=== PATIENT | female | born 1960 | race African-American/Black ===

== ENCOUNTER 2016-09-25 16:33 | Inpatient (IN) | payer OTHER ==
[2016-09-25 17:21] VITALS: BMI 32.3
--- NOTE | 2016-09-25 18:25 | HP ---
CIWA Score - CIWA Score Nausea/Vomitin Muscle Tremors: 3 Anxiety: 3 Agitation: 3 Paroxysmal Sweats: 2 Orientation: 0-Oriented Tacttile Disturbances: 2-Mild Itch/Numbness/Burn Auditory Disturbances: 2-Mild Harshness/Frighten Visual Disturbances: 2-Mild Sensitivity Headache: 2-Mild CIWA-Ar Total Score: 22 Admission ROS BHS - HPI Chief Complaint: i need help to stop drinking alcohol Allergies/Adverse Reactions: Allergies Allergy/AdvReac Type Severity Reaction Status Date / Time ibuprofen [From Motrin] Allergy Intermediate Swelling Verified 09/25/16 19:26 latex Allergy Intermediate Itching Verified 09/25/16 19:26 chlordiazepoxide HCl AdvReac Verified 09/25/16 19:26 [From Librium] History of Present Illness: this 55 years old female with alcohol dependence,seeking help for detox,last treatment rehab 10/03/15 to 10/30/15 in [facility], syncope alcohol related htn on medation seen in [facility] on 09/24/16 given librium,refer for detox no smoking longest period of sobriety 4 months - Ebola screening Have you traveled outside of the country in the last 21 days: No Have you had contact with anyone from an Ebola affected area: No Have you been sick,other than usual withdrawal symptoms: No Do you have a fever: No - Review of Systems Constitutional: Loss of Appetite, Malaise, Night Sweats, Changes in sleep, Weakness EENT: reports: Nose Congestion Respiratory: reports: Other (asthma bronchitis) Cardiac: reports: Palpitations GI: reports: Diarrhea, Nausea, Vomiting, Abdominal cramping : reports: No Symptoms Reported Musculoskeletal: reports: Back Pain, Muscle Pain Integumentary: reports: Dryness Endocrine: reports: No Symptoms Reported Hematology: reports: No Symptoms Reported Psychiatric: reports: No Sypmtoms Reported, Judgement Intact, Mood/Affect Appropiate Patient History - Patient Medical History Hx Anemia: No Hx Asthma: Yes (bronchitis) Hx Chronic Obstructive Pulmonary Disease (COPD): No Hx Cancer: No Hx Cardiac Disorders: No Hx Congestive Heart Failure: No Hx Hypertension: Yes (on medication) Hx Hypercholesterolemia: No Hx Pacemaker: No HX Cerebrovascular Accident: No Hx Seizures: No Hx Dementia: No Hx Diabetes: No Hx Gastrointestinal Disorders: Yes (gerd) Hx Liver Disease: No Hx Genitourinary Disorders: No Hx Sexually Transmitted Disorders: No Hx Renal Disease (ESRD): No Hx Thyroid Disease: No Hx Human Immunodeficiency Virus (HIV): No (hiv last 2015 ) Hx Hepatitis C: No Hx Depression: No Hx Suicide Attempt: No Hx Bipolar Disorder: No Hx Schizophrenia: No Other Medical History: no suicidal,no homicidal - Patient Surgical History Hx Section: Yes (06/2000) Hx Orthopedic Surgery: Yes (left ankle in 1999 [facility]) - PPD History Previous Implant?: Yes Documented Results: Negative w/o proof Implanted On Prior [facility] Admission?: No PPD to be Administered?: Yes - Reproductive History Patient is a Female of Child Bearing Age (11 -55 yrs old): No Patient : No - Smoking Cessation Smoking history: Never smoked - Substance & Tx. History Hx Alcohol Use: Yes Hx Substance Use: No Substance Use Type: Alcohol Hx Substance Use Treatment: Yes (rehab in [facility] 10.03.15 to 10.30.15) - Substances Abused Alcohol Route: Oral Frequency: Daily Amount used: 1pint of vodka Age of first use: 29 Date of Last Use: 09/23/16 Family Disease History - Family Disease History Family Disease History: CA: Mother ( leukemia), Other: Father (htn, ) Admission Physical Exam S - Vital Signs Vital Signs: Vital Signs - 24 hr 09/25/16 17:15 Temperature 98.1 F Pulse Rate 114 H Respiratory 20 Rate Blood Pressure 162/97 - Physical General Appearance: Yes: Moderate Distress, Tremorous, Irritable, Sweating, Anxious HEENTM: Yes: Normal ENT Inspection, YURIY, Pharynx Normal Respiratory: Yes: Lungs Clear, Normal Breath Sounds, No Respiratory Distress Neck: Yes: Within Normal Limits, Supple, Trachea in good position Breast: Yes: Breast Exam Deferred Cardiology: Yes: Tachycardia Abdominal: Yes: Within Normal Limits, Normal Bowel Sounds, Non Tender, Flat, Soft Genitourinary: Yes: Within Normal Limits Back: Yes: Muscle Spasm Musculoskeletal: Yes: Back pain, Muscle Pain Extremities: Yes: Tremors Neurological: Yes: copra processor II-XII NML intact, Fully Oriented, Alert, Motor Strength 5/5 Integumentary: Yes: Dry Lymphatic: Yes: Within Normal Limits - Diagnostic (1) Alcohol dependence with uncomplicated withdrawal Current Visit: Yes Status: Acute (2) Essential hypertension Current Visit: Yes Status: Acute (3) Syncope Current Visit: Yes Status: Acute (4) Bronchitis Current Visit: Yes Status: Acute (5) Obesity Current Visit: Yes Status: Acute Cleared for Admission S - Detox or Rehab [facility] Level of Care: Medically Managed Detox Regimen/Protocol: Valium BHS Breath Alcohol Content Breath Alcohol Content: 0 Urine Pregancy Test - Result Urine Test Results: Negative- NO Line Present Urine Drug Screen - Results Drug Screen Negative: No Urine Drug Screen Results: BZO-Benzodiazepines
[2016-09-25] MEDS ORDERED: diazePAM 5 MG TABLET PO PRN (18:44)
[2016-09-25] MEDS ORDERED: guaiFENesin/D-METHORPHAN HB 10 ML UNIT-DOSE CUPS PO PRN (18:44)
[2016-09-25] MEDS ORDERED: hydrOXYzine PAMOATE 50 MG CAPSULE (FP) PO PRN (18:44)
[2016-09-25] MEDS ORDERED: MAG HYDROX/AL HYDROX/SIMETH 30 ML UNIT-DOSE CUP PO PRN (18:44)
[2016-09-25] MEDS ORDERED: diazePAM 5 MG TABLET PO ONE (18:44)
[2016-09-25] MEDS ORDERED: P-EPHED 60MG/TRIPROLIDI 2.5MG TABLET PO PRN (18:44)
[2016-09-25] MEDS ORDERED: MAGNESIUM HYDROX 2400MG/30ML ORAL SUSPENSION 30 ML CUP PO PRN (18:44)
[2016-09-25] MEDS ORDERED: ACETAMINOPHEN 325 MG TABLET (FP) PO PRN (18:44)
[2016-09-25] MEDS ORDERED: diphenhydrAMINE HCL 50 MG CAPSULE PO PRN (18:44)
[2016-09-25] MEDS ORDERED: LOPERAMIDE HCL 2 MG CAPSULE PO PRN (18:44)
[2016-09-25] MEDS ORDERED: MENTHOL/PHENOL 1 EACH UD MM PRN (18:44)
[2016-09-25] MEDS ORDERED: MAGNESIUM CITRATE 300 ML BOTTLE PO PRN (18:44)
[2016-09-25] MEDS ORDERED: ALBUTEROL SO4 6.7 GM HFA INHALER IH PRN (18:50)
[2016-09-25] MEDS: diazePAM 5 MG TABLET PO SCH (22:47)
[2016-09-25] MEDS: THIAMINE HCL 100 MG TABLET (FP) PO SCH (22:48)
[2016-09-25 23:10] LABS: URINE APPEARANCE CLOUDY; URINE BILIRUBIN NEGATIVE (NEGATIVE); URINE BLOOD 1+ (NEGATIVE); URINE COLOR YELLOW; URINE GLUCOSE (UA) NEGATIVE (NEGATIVE); URINE KETONE 1+ (NEGATIVE); URINE NITRITE NEGATIVE (NEGATIVE); URINE UROBILINOGEN NEGATIVE mg/dL (0.2-1.0)
[2016-09-25 23:11] LABS: URINE LEUK ESTERASE 3+ (NEGATIVE); URINE PROTEIN 1+ (NEGATIVE)
[2016-09-25 23:22] LABS: URINE MUCUS RARE; URINE RBC 11 /hpf (0-3); URINE WBC 153 /hpf (3-5)
[2016-09-26] MEDS: diazePAM 5 MG TABLET PO SCH ×3 (05:50→22:55)
--- NOTE | 2016-09-26 10:05 | PN ---
S CIWA - CIWA Score Nausea/Vomitin Muscle Tremors: 3 Anxiety: 2 Agitation: 2 Paroxysmal Sweats: 1-Minimal Palms Moist Orientation: 0-Oriented Tacttile Disturbances: 1-Very Mild Itch/Numbness Auditory Disturbances: 1-Very Mild Visual Disturbances: 1-Very Mild Sensitivity Headache: 2-Mild CIWA-Ar Total Score: 16 S Progress Note (SOAP) Subjective: ALERT,IRRITABLE,ANXIOUS,INTERRUPTED SLEEP,TREMOR Objective: 09/26/16 10:01 Vital Signs Temperature 96.4 F L 09/26/16 09:23 Pulse Rate 111 H 09/26/16 09:23 Respiratory Rate 20 09/26/16 09:23 Blood Pressure 157/75 09/26/16 09:23 O2 Sat by Pulse Oximetry (%) EKG SINUS TACHYCARDIA 103/MIN NO CHEST PAIN,NO SOB,NO DIZZINESS Laboratory Last Values Urine Color Yellow 09/25/16 23:00 Urine Appearance Cloudy 09/25/16 23:00 Urine pH 6.0 (5.0-8.0) 09/25/16 23:00 Urine Protein 1+ (NEGATIVE) H 09/25/16 23:00 Urine Glucose (UA) Negative (NEGATIVE) 09/25/16 23:00 Urine Ketones 1+ (NEGATIVE) H 09/25/16 23:00 Urine Blood 1+ (NEGATIVE) H 09/25/16 23:00 Urine Nitrite Negative (NEGATIVE) 09/25/16 23:00 Urine Bilirubin Negative (NEGATIVE) 09/25/16 23:00 Urine Urobilinogen Negative mg/dL (0.2-1.0) 09/25/16 23:00 Ur Leukocyte Esterase 3+ (NEGATIVE) H 09/25/16 23:00 Urine RBC 11 /hpf (0-3) 09/25/16 23:00 Urine WBC 153 /hpf (3-5) 09/25/16 23:00 Ur Epithelial Cells Rare /hpf (FEW) 09/25/16 23:00 Urine Mucus Rare 09/25/16 23:00 URINE FOR C/S,UA Assessment: 09/26/16 10:04 WITHDRAWAL SYMPTOM Plan: CONTINUE DETOX,REPEAT UA,URINE FOR C/S R/O UTI
[2016-09-26 10:10] LABS: MCH 27.5 pg (25.7-33.7); MCHC 33.2 g/dl (32.0-36.0); MEAN CELL VOLUME 82.8 fl (80-96); MEAN PLT VOLUME 8.8 fl (7.5-11.1); PLATELET COUNT 148 K/MM3 (134-434); RDW 14.7 % (11.6-15.6); WHITE BLOOD COUNT 8.7 K/mm3 (4.0-10.0)
[2016-09-26 10:23] LABS: ALBUMIN 3.7 g/dl (3.4-5.0); ALK PHOS 112 U/L (45-117); ANION GAP 9 (8-16); CALCIUM 8.6 mg/dL (8.5-10.1); CO2 31 mmol/L (21-32); CREATININE 0.8 mg/dL (0.55-1.02); GLUCOSE,RANDOM 100 mg/dL (74-106); SGOT/AST 73 U/L (15-37); SGPT/ALT 63 U/L (12-78); TOT PROT 7.8 g/dl (6.4-8.2)
[2016-09-26] MEDS: PRENATAL VITAMINS W/ FOLIC ACID TABLET (FP) PO SCH (10:29)
[2016-09-26] MEDS: HYDROCHLOROTHIAZIDE 25 MG TABLET (FP) PO SCH (10:29)
[2016-09-26] MEDS: amLODIPine BESYLATE 10 MG TABLET (FP) PO SCH (10:29)
[2016-09-26] MEDS: SULFAMETHOXAZOLE/TRIMETHOPRIM 800MG/160MG D.S. TABLET PO SCH ×2 (11:11→22:24)
--- NOTE | 2016-09-26 11:27 | EKG ---
Test Reason : Blood Pressure : / mmHG Vent. Rate : 101 BPM Atrial Rate : 101 BPM P-R Int : 148 ms QRS Dur : 082 ms QT Int : 358 ms P-R-T Axes : 063 -32 061 degrees QTc Int : 464 ms SINUS TACHYCARDIA POSSIBLE LEFT ATRIAL ENLARGEMENT LEFT AXIS DEVIATION INFERIOR INFARCT , AGE UNDETERMINED ABNORMAL ECG NO PREVIOUS ECGS AVAILABLE Confirmed by TE SWANSON, JENNIFER ([id number]) on 09/26/2016 11:27:41 AM Referred By: Wang Rincon Confirmed By:JENNIFER TIWARI MD
[2016-09-26 15:32] LABS: URINE APPEARANCE SLCLOUDY; URINE BILIRUBIN NEGATIVE (NEGATIVE); URINE BLOOD NEGATIVE (NEGATIVE); URINE COLOR AMBER; URINE GLUCOSE (UA) NEGATIVE (NEGATIVE); URINE KETONE NEGATIVE (NEGATIVE); URINE NITRITE NEGATIVE (NEGATIVE)
[2016-09-26 15:37] LABS: URINE LEUK ESTERASE 3+ (NEGATIVE); URINE PROTEIN 1+ (NEGATIVE)
[2016-09-26 15:46] LABS: URINE HYALINE CAST 14 /lpf; URINE MUCUS FEW; URINE RBC 1 /hpf (0-3); URINE WBC 41 /hpf (3-5)
[2016-09-26] MEDS: THIAMINE HCL 100 MG TABLET (FP) PO SCH (22:24)
--- NOTE | 2016-09-27 10:16 | PN ---
S Progress Note (SOAP) Subjective: ALERT,IRRITABLE,ANXIOUS,INTERRUPTED SLEEP Objective: 09/27/16 10:15 Vital Signs Temperature 97.7 F 09/27/16 06:20 Pulse Rate 102 H 09/27/16 06:20 Respiratory Rate 18 09/27/16 06:20 Blood Pressure 147/90 09/27/16 06:20 O2 Sat by Pulse Oximetry (%) Assessment: 09/27/16 10:15 WITHDRAWAL SYMPTOM Plan: CONTINUE DETOX,DISCHARGE IN AM
[2016-09-27] MEDS: HYDROCHLOROTHIAZIDE 25 MG TABLET (FP) PO SCH (10:22)
[2016-09-27] MEDS: PRENATAL VITAMINS W/ FOLIC ACID TABLET (FP) PO SCH (10:22)
[2016-09-27] MEDS: diazePAM 5 MG TABLET PO SCH ×2 (10:22→22:55)
[2016-09-27] MEDS: amLODIPine BESYLATE 10 MG TABLET (FP) PO SCH (10:22)
[2016-09-27] MEDS: SULFAMETHOXAZOLE/TRIMETHOPRIM 800MG/160MG D.S. TABLET PO SCH ×2 (10:22→22:14)
--- NOTE | 2016-09-27 11:11 | PN ---
S CIWA - CIWA Score Nausea/Vomitin Muscle Tremors: 3 Anxiety: 2 Agitation: 2 Paroxysmal Sweats: No Perspiration Orientation: 0-Oriented Tacttile Disturbances: 1-Very Mild Itch/Numbness Auditory Disturbances: 1-Very Mild Visual Disturbances: 1-Very Mild Sensitivity Headache: 2-Mild CIWA-Ar Total Score: 15 S Progress Note (SOAP) Subjective: ALERT,IRRITABLE,ANXIOUS,INTERRUPTED SLEEP,TREMOR Objective: 09/27/16 11:09 Vital Signs Temperature 97.7 F 09/27/16 10:00 Pulse Rate 115 H 09/27/16 10:00 Respiratory Rate 20 09/27/16 10:00 Blood Pressure 144/76 09/27/16 10:00 O2 Sat by Pulse Oximetry (%) Laboratory Last Values WBC 8.7 K/mm3 (4.0-10.0) 09/26/16 07:30 RBC 4.69 M/mm3 (3.60-5.2) 09/26/16 07:30 Hgb 12.9 GM/dL (10.7-15.3) 09/26/16 07:30 Hct 38.8 % (32.4-45.2) 09/26/16 07:30 MCV 82.8 fl (80-96) 09/26/16 07:30 MCH 27.5 pg (25.7-33.7) 09/26/16 07:30 MCHC 33.2 g/dl (32.0-36.0) 09/26/16 07:30 RDW 14.7 % (11.6-15.6) 09/26/16 07:30 Plt Count 148 K/MM3 (134-434) 09/26/16 07:30 MPV 8.8 fl (7.5-11.1) 09/26/16 07:30 Sodium 136 mmol/L (136-145) 09/26/16 07:30 Potassium 3.3 mmol/L (3.5-5.1) L 09/26/16 07:30 Chloride 96 mmol/L (98-107) L 09/26/16 07:30 Carbon Dioxide 31 mmol/L (21-32) 09/26/16 07:30 Anion Gap 9 (8-16) 09/26/16 07:30 BUN 8 mg/dL (7-18) 09/26/16 07:30 Creatinine 0.8 mg/dL (0.55-1.02) 09/26/16 07:30 Creat Clearance w eGFR > 60 (>60) 09/26/16 07:30 Random Glucose 100 mg/dL (74-106) 09/26/16 07:30 Calcium 8.6 mg/dL (8.5-10.1) 09/26/16 07:30 Total Bilirubin 2.0 mg/dL (0.2-1.0) H 09/26/16 07:30 AST 73 U/L (15-37) H 09/26/16 07:30 ALT 63 U/L (12-78) 09/26/16 07:30 Alkaline Phosphatase 112 U/L (45-117) 09/26/16 07:30 Total Protein 7.8 g/dl (6.4-8.2) 09/26/16 07:30 Albumin 3.7 g/dl (3.4-5.0) 09/26/16 07:30 Urine Color Tamia 09/26/16 10:30 Urine Appearance Slcloudy 09/26/16 10:30 Urine pH 7.0 (5.0-8.0) 09/26/16 10:30 Ur Specific [place] 1.015 (1.005-1.025) 09/26/16 10:30 Urine Protein 1+ (NEGATIVE) H 09/26/16 10:30 Urine Glucose (UA) Negative (NEGATIVE) 09/26/16 10:30 Urine Ketones Negative (NEGATIVE) 09/26/16 10:30 Urine Blood Negative (NEGATIVE) 09/26/16 10:30 Urine Nitrite Negative (NEGATIVE) 09/26/16 10:30 Urine Bilirubin Negative (NEGATIVE) 09/26/16 10:30 Urine Urobilinogen 2.0 mg/dL (0.2-1.0) H 09/26/16 10:30 Ur Leukocyte Esterase 3+ (NEGATIVE) H 09/26/16 10:30 Urine RBC 1 /hpf (0-3) 09/26/16 10:30 Urine WBC 41 /hpf (3-5) 09/26/16 10:30 Ur Epithelial Cells Rare /hpf (FEW) 09/26/16 10:30 Hyaline Casts 14 /lpf 09/26/16 10:30 Urine Mucus Few 09/26/16 10:30 RPR Titer Nonreactive (NONREACTIVE) 09/26/16 07:30 Assessment: 09/27/16 11:10 WITHDRAWAL SYMPTOM Plan: CONTINUE DETOX,URINE FOR C/S PENDING,ENCOURAGE ORAL FLUID AND CONTINUE BACTRIM DS 1 TAB PO BID
[2016-09-27] MEDS: THIAMINE HCL 100 MG TABLET (FP) PO SCH (22:14)
--- NOTE | 2016-09-28 08:36 | PN ---
S Progress Note (SOAP) Subjective: ALERT,NO COMPLAINT Objective: 09/28/16 08:33 Vital Signs Temperature 97.7 F 09/28/16 06:07 Pulse Rate 90 09/28/16 06:07 Respiratory Rate 20 09/28/16 06:07 Blood Pressure 128/70 09/28/16 06:07 O2 Sat by Pulse Oximetry (%) 09/28/16 08:33 Assessment: 09/28/16 08:33 STABLE,NO WITHDRAWAL SYMPTOM Plan: DISCHARGE TODAY,FOLLOW UP WITH AFTER CARE PROGRAM ARRANGEMENT
--- NOTE | 2016-09-28 08:48 | DS ---
[facility] Detox Discharge Summary Admission Date: 09/25/16 Discharge Date: 09/28/16 - History Present History: Alcohol Dependence Additional Comments: FOLLOW UP WITH AFTER CARE PROGRAM ARRANGEMENT Pertinent Past History: ESSENTIAL HYPERTENSION SYNCOPE BRONHITIS OBESITY - Physical Exam Results Vital Signs: Vital Signs Temperature 97.7 F 09/28/16 06:07 Pulse Rate 90 09/28/16 06:07 Respiratory Rate 20 09/28/16 06:07 Blood Pressure 128/70 09/28/16 06:07 O2 Sat by Pulse Oximetry (%) Pertinent Admission Physical Exam Findings: WITHDRAWAL SYMPTOM - Treatment Hospital Course: Detox Protocol Followed, Detoxed Safely, Responded well, Discharged Condition Good Patient has Accepted a Rehab Referral to: DECLINED - Medication Discharge Medications: Ambulatory Orders Amlodipine Besylate [Norvasc -] 10 mg PO DAILY #30 tab 09/28/16 Hydrochlorothiazide 25 mg PO DAILY #30 tab 09/28/16 Sulfamethoxazole/Trimethoprim [Bactrim DS -] 1 each PO BID #14 tablet 09/28/16 - Diagnosis (1) Alcohol dependence with uncomplicated withdrawal Current Visit: Yes Status: Acute (2) Essential hypertension Current Visit: Yes Status: Acute (3) Syncope Current Visit: Yes Status: Acute (4) Bronchitis Current Visit: Yes Status: Acute (5) Obesity Current Visit: Yes Status: Acute (6) UTI (urinary tract infection) Current Visit: Yes Status: Acute - AMA Did Patient Leave Against Medical Advice: No
[2016-09-28 10:02] VITALS: BP 153/73; PULSE 97; TEMP 97.9
[2016-09-29] MEDS ORDERED: diazePAM 5 MG TABLET PO SCH (10:00)
== END 2016-09-28 09:14 | disposition home or self-care (01) | DRG 775 ==
LOC: EDSEX → YASAS 16:33 → Y6N 18:49
PROVIDERS: ADMIT Internal Medicine; ATTEND Internal Medicine
PROC: HZ2ZZZZ Detoxification Services for Substance Abuse Treatment (ICD-10-PCS; principal; 2016-09-25)
DX: F10.230 Alcohol dependence with withdrawal, uncomplicated (principal); I10 Essential (primary) hypertension; J40 Bronchitis, not specified as acute or chronic; E66.9 Obesity, unspecified; Z68.32 Body mass index [BMI] 32.0-32.9, adult; K21.9 Gastro-esophageal reflux disease without esophagitis; N39.0 Urinary tract infection, site not specified; R00.0 Tachycardia, unspecified; Z86.79 Personal history of other diseases of the circulatory system; Z88.6 Allergy status to analgesic agent; Z91.018 Allergy to other foods; Z88.8 Allergy status to other drugs, medicaments and biological substances
CPT/HCPCS: 36415; 80053; 81003; 81015; 85027; 86593; 87086; 93005; 93010

== ENCOUNTER 2017-01-13 18:17 | Inpatient (IN) | payer OTHER ==
[2017-01-13 18:38] VITALS: BMI 32.3
--- NOTE | 2017-01-13 21:20 | HP ---
CIWA Score - CIWA Score Nausea/Vomitin Muscle Tremors: 3 Anxiety: 3 Agitation: 3 Paroxysmal Sweats: 2 Orientation: 0-Oriented Tacttile Disturbances: 2-Mild Itch/Numbness/Burn Auditory Disturbances: 2-Mild Harshness/Frighten Visual Disturbances: 1-Very Mild Sensitivity Headache: 2-Mild CIWA-Ar Total Score: 21 Admission ROS BHS - HPI Chief Complaint: I AM HERE FOR DETOX FROM ALCOHOL Allergies/Adverse Reactions: Allergies Allergy/AdvReac Type Severity Reaction Status Date / Time ibuprofen [From Motrin] Allergy Intermediate Swelling Verified 01/13/17 19:46 latex Allergy Intermediate Itching Verified 01/13/17 19:46 chlordiazepoxide HCl AdvReac Verified 01/13/17 19:46 [From Librium] History of Present Illness: THIS 56 YEARS OLD FEMALE WITH ALCOHOL DEPENDENCE,SEEKING DETOX,LAST TREATMENT IN [facility] 12/10 BUT RELAPSE SYNCOPE HTN DEPRESSION LONGEST PERIOD OF SOBRIETY 6 MONTHS Exam Limitations: No Limitations - Ebola screening Have you traveled outside of the country in the last 21 days: No (N) Have you had contact with anyone from an Ebola affected area: No Have you been sick,other than usual withdrawal symptoms: No Do you have a fever: No - Review of Systems Constitutional: Loss of Appetite, Malaise, Night Sweats, Changes in sleep EENT: reports: Nose Congestion Respiratory: reports: No Symptoms reported Cardiac: reports: Palpitations GI: reports: Diarrhea, Nausea : reports: No Symptoms Reported Musculoskeletal: reports: Back Pain, Muscle Pain Integumentary: reports: Dryness Neuro: reports: Headache, Tremors Endocrine: reports: No Symptoms Reported Hematology: reports: No Symptoms Reported Psychiatric: reports: No Sypmtoms Reported (INSOMNIA), Judgement Intact, Mood/ Affect Appropiate, Depressed Patient History - Patient Medical History Hx Anemia: No Hx Asthma: No (bronchitis) Hx Chronic Obstructive Pulmonary Disease (COPD): No Hx Cancer: No Hx Cardiac Disorders: No Hx Congestive Heart Failure: No Hx Hypertension: Yes (on medication) Hx Hypercholesterolemia: No Hx Pacemaker: No HX Cerebrovascular Accident: No Hx Seizures: No Hx Dementia: No Hx Diabetes: No Hx Gastrointestinal Disorders: No Hx Liver Disease: No Hx Genitourinary Disorders: No Hx Sexually Transmitted Disorders: No Hx Renal Disease (ESRD): No Hx Thyroid Disease: No Hx Human Immunodeficiency Virus (HIV): No (hiv last 2015 ) Hx Hepatitis C: No Hx Depression: Yes Hx Suicide Attempt: No Hx Bipolar Disorder: No Hx Schizophrenia: No Other Medical History: NO SUICIDAL,NO HMICIDAL - Patient Surgical History Past Surgical History: Yes Hx Neurologic Surgery: No Hx Cataract Extraction: No Hx Cardiac Surgery: No Hx Lung Surgery: No Hx Breast Surgery: No Hx Breast Biopsy: No Hx Abdominal Surgery: No Hx Appendectomy: No Hx Cholecystectomy: No Hx Genitourinary Surgery: No Hx Section: Yes (06/2000) Hx Orthopedic Surgery: Yes (left ankle in 1999 [facility]) Anesthesia Reaction: No - PPD History Previous Implant?: Yes Documented Results: Negative w/proof Date: 09/27/16 Results: 0 MM PPD to be Administered?: No - Reproductive History Patient is a Female of Child Bearing Age (11 -55 yrs old): No Patient : No - Smoking Cessation Smoking history: Never smoked Hx Chewing Tobacco Use: No Initiated information on smoking cessation: No - Substances Abused Alcohol Route: Oral Frequency: Daily Amount used: LIQUOR- 2 PINTS Age of first use: 29 Date of Last Use: 01/12/17 Family Disease History - Family Disease History Family Disease History: CA: Mother ( leukemia), Other: Father (htn, ) Admission Physical Exam BHS - Vital Signs Vital Signs: Vital Signs - 24 hr 01/13/17 18:37 Temperature 97.1 F L Pulse Rate 115 H Respiratory 18 Rate Blood Pressure 170/100 - Physical General Appearance: Yes: Moderate Distress, Tremorous, Irritable, Sweating, Anxious HEENTM: Yes: Normal ENT Inspection, Normal Voice, YURIY, Pharynx Normal Respiratory: Yes: Lungs Clear, Normal Breath Sounds, No Respiratory Distress Neck: Yes: Within Normal Limits, Supple, Trachea in good position Breast: Yes: Breast Exam Deferred Cardiology: Yes: Tachycardia Abdominal: Yes: Within Normal Limits, Normal Bowel Sounds, Non Tender Genitourinary: Yes: Within Normal Limits Back: Yes: Muscle Spasm Musculoskeletal: Yes: Back pain, Muscle Pain Extremities: Yes: Tremors Neurological: Yes: senior hr generalist II-XII 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 intact, Fully Oriented, Alert, Motor Strength 5/5 Integumentary: Yes: Dry Lymphatic: Yes: Within Normal Limits - Diagnostic (1) Alcohol dependence with uncomplicated withdrawal Current Visit: No Status: Acute (2) Bronchitis Current Visit: No Status: Acute (3) Essential hypertension Current Visit: No Status: Acute (4) Obesity Current Visit: No Status: Acute (5) Syncope Current Visit: No Status: Acute (6) Insomnia Current Visit: Yes Status: Acute (7) Depression Current Visit: Yes Status: Acute Cleared for Admission BHS - Detox or Rehab [facility] Level of Care: Medically Managed Detox Regimen/Protocol: Valium BHS Breath Alcohol Content Breath Alcohol Content: 0 Urine Pregancy Test - Result Urine Test Results: Negative- NO Line Present Urine Drug Screen - Results Drug Screen Negative: No Urine Drug Screen Results: BZO-Benzodiazepines
[2017-01-13] MEDS ORDERED: guaiFENesin/D-METHORPHAN HB 10 ML UNIT-DOSE CUPS PO PRN (21:31)
[2017-01-13] MEDS ORDERED: MAGNESIUM CITRATE 300 ML BOTTLE PO PRN (21:31)
[2017-01-13] MEDS ORDERED: MAG HYDROX/AL HYDROX/SIMETH 30 ML UNIT-DOSE CUP PO PRN (21:31)
[2017-01-13] MEDS ORDERED: diazePAM 5 MG TABLET PO ONE (21:31)
[2017-01-13] MEDS ORDERED: MAGNESIUM HYDROX 2400MG/30ML ORAL SUSPENSION 30 ML CUP PO PRN (21:31)
[2017-01-13] MEDS ORDERED: diazePAM 5 MG TABLET PO PRN (21:31)
[2017-01-13] MEDS ORDERED: P-EPHED 60MG/TRIPROLIDI 2.5MG TABLET PO PRN (21:31)
[2017-01-13] MEDS ORDERED: LOPERAMIDE HCL 2 MG CAPSULE PO PRN (21:31)
[2017-01-13] MEDS ORDERED: hydrOXYzine PAMOATE 25 MG CAPSULE (FP) PO PRN (21:31)
[2017-01-13] MEDS: THIAMINE HCL 100 MG TABLET (FP) PO SCH (22:34)
[2017-01-13] MEDS: diazePAM 5 MG TABLET PO SCH (22:37)
[2017-01-14 00:51] LABS: URINE APPEARANCE CLEAR; URINE BILIRUBIN NEGATIVE (NEGATIVE); URINE BLOOD 1+ (NEGATIVE); URINE COLOR STRAW; URINE GLUCOSE (UA) NEGATIVE (NEGATIVE); URINE KETONE 2+ (NEGATIVE); URINE NITRITE NEGATIVE (NEGATIVE); URINE PROTEIN NEGATIVE (NEGATIVE); URINE UROBILINOGEN NEGATIVE mg/dL (0.2-1.0)
[2017-01-14 01:12] LABS: URINE RBC <1 /hpf (0-3); URINE WBC 1 /hpf (3-5)
[2017-01-14] MEDS: MENTHOL/PHENOL 1 EACH UD MM PRN ×2 (02:51→14:05)
[2017-01-14] MEDS: diazePAM 5 MG TABLET PO SCH ×3 (05:40→22:19)
--- NOTE | 2017-01-14 08:47 | PN ---
S CIWA - CIWA Score Nausea/Vomitin Muscle Tremors: 3 Anxiety: 3 Agitation: 3 Paroxysmal Sweats: 1-Minimal Palms Moist Orientation: 0-Oriented Tacttile Disturbances: 1-Very Mild Itch/Numbness Auditory Disturbances: 1-Very Mild Visual Disturbances: 0-None Headache: 2-Mild CIWA-Ar Total Score: 17 BHS Progress Note (SOAP) Subjective: alert,irritable,interrupted sleep,tremor,pain in the body Objective: 01/14/17 08:45 Vital Signs Temperature 97.2 F L 01/14/17 07:03 Pulse Rate 100 H 01/14/17 07:03 Respiratory Rate 20 01/14/17 07:03 Blood Pressure 137/98 01/14/17 07:03 O2 Sat by Pulse Oximetry (%) ekg sinus tachycardia no chest pain,no sob,no dizziness Laboratory Last Values Urine Color Straw 01/13/17 23:00 Urine Appearance Clear 01/13/17 23:00 Urine pH 5.0 (5.0-8.0) D 01/13/17 23:00 Ur Specific [place] 1.013 (1.001-1.035) 01/13/17 23:00 Urine Protein Negative (NEGATIVE) 01/13/17 23:00 Urine Glucose (UA) Negative (NEGATIVE) 01/13/17 23:00 Urine Ketones 2+ (NEGATIVE) H 01/13/17 23:00 Urine Blood 1+ (NEGATIVE) H 01/13/17 23:00 Urine Nitrite Negative (NEGATIVE) 01/13/17 23:00 Urine Bilirubin Negative (NEGATIVE) 01/13/17 23:00 Urine Urobilinogen Negative mg/dL (0.2-1.0) 01/13/17 23:00 labs pending Assessment: 01/14/17 08:46 withdrawal symptom Plan: continue detox
[2017-01-14 10:02] LABS: MCH 26.5 pg (25.7-33.7); MCHC 32.5 g/dl (32.0-36.0); MEAN CELL VOLUME 81.6 fl (80-96); MEAN PLT VOLUME 8.8 fl (7.5-11.1); PLATELET COUNT 153 K/MM3 (134-434); RDW 14.4 % (11.6-15.6); WHITE BLOOD COUNT 9.3 K/mm3 (4.0-10.0)
[2017-01-14] MEDS: amLODIPine BESYLATE 10 MG TABLET (FP) PO SCH (10:19)
[2017-01-14] MEDS: HYDROCHLOROTHIAZIDE 25 MG TABLET (FP) PO SCH (10:19)
[2017-01-14] MEDS: PRENATAL VITAMINS W/ FOLIC ACID TABLET (FP) PO SCH (10:19)
[2017-01-14 10:32] LABS: ALBUMIN 4.5 g/dl (3.4-5.0); ALK PHOS 148 U/L (45-117); ANION GAP 18 (8-16); BILIRUBIN,TOTAL 1.9 mg/dL (0.2-1.0); CALCIUM 8.9 mg/dL (8.5-10.1); CO2 24 mmol/L (21-32); CREATININE 0.7 mg/dL (0.55-1.02); GLUCOSE,RANDOM 100 mg/dL (74-106); SGOT/AST 122 U/L (15-37); SGPT/ALT 79 U/L (12-78); TOT PROT 8.7 g/dl (6.4-8.2)
[2017-01-14 11:10] LABS: URINE LEUK ESTERASE Negative (NEGATIVE)
--- NOTE | 2017-01-14 12:40 | EKG ---
Test Reason : Blood Pressure : / mmHG Vent. Rate : 103 BPM Atrial Rate : 103 BPM P-R Int : 150 ms QRS Dur : 080 ms QT Int : 364 ms P-R-T Axes : 062 -22 062 degrees QTc Int : 476 ms SINUS TACHYCARDIA LEFT AXIS DEVIATION NONSPECIFIC ST AND T WAVE ABNORMALITY WHEN COMPARED WITH ECG OF 25-SEP-2016 19:57, CRITERIA FOR INFERIOR INFARCT ARE NO LONGER PRESENT REPEAT EKG IF CLINICALLY INDICATED Confirmed by NISHANT CHAN MD ([id number]) on 01/14/2017 12:39:38 PM Referred By: Confirmed By:NISHANT CHAN MD
--- NOTE | 2017-01-14 15:26 | CONSULT ---
[facility] Psychiatric Consult - Data Date of interview: 01/14/17 Admission source: [facility] Identifying data: Readmission to [facility] for this 56 y/o AA female seeking detox treatment on for alcohol dependence.Patient is single,a mother of one,domiciled and currently employed. Substance Abuse History: Discussed with / confirmed by patient in this interview. Smoking history: Never smoked. Hx Chewing Tobacco Use: No. Initiated information on smoking cessation: No. - Substances Abused. Alcohol. Route: Oral. Frequency: Daily. Amount used: LIQUOR- 2 PINTS. Age of first use: 29. Date of Last Use: 01/12/17 Medical History: Hypertension,obesity,antecedent of one section and past history of orthosurgery for fracture of left ankle. Psychiatric History: Patient denies. Physical/Sexual Abuse/Trauma History: Patient denies. Additional Comment: Urine Drug Screen Results: BZO-Benzodiazepines.Noted. Mental Status Exam - Mental Status Exam Alert and Oriented to: Time, Place, Person Cognitive Function: Good Patient Appearance: Well Groomed (overweight) Mood: Withdrawn, Anxious, Hopeful Affect: Mood Congruent Patient Behavior: Fatigued, Appropriate, Cooperative Speech Pattern: Clear Voice Loudness: Normal Thought Process: Intact, Goal Oriented Thought Disorder: Not Present Hallucinations: Denies Suicidal Ideation: Denies Homicidal Ideation: Denies Insight/Judgement: Poor Sleep: Well Appetite: Good Muscle strength/Tone: Normal Gait/Station: Normal Psychiatric Findings - Problem List ([place] 1, 2,3) (1) Alcohol dependence with uncomplicated withdrawal Current Visit: Yes Status: Acute (2) Alcohol-induced mood disorder Current Visit: Yes Status: Suspected (3) Insomnia Current Visit: Yes Status: Acute - Initial Treatment Plan Initial Treatment Plan: Psychoeducation.Detoxification.Ambien 5 mg po hs prn.Side effects/benefits discussed with the patient.Ms Langley is in agreement with this careplan.Observation.
[2017-01-14] MEDS: ACETAMINOPHEN 325 MG TABLET (FP) PO PRN (22:17)
[2017-01-14] MEDS: THIAMINE HCL 100 MG TABLET (FP) PO SCH (22:19)
[2017-01-14] MEDS: ZOLPIDEM TARTRATE 5 MG TABLET PO PRN (23:17)
[2017-01-15] MEDS: ACETAMINOPHEN 325 MG TABLET (FP) PO PRN (07:22)
[2017-01-15] MEDS: MENTHOL/PHENOL 1 EACH UD MM PRN (07:25)
--- NOTE | 2017-01-15 09:41 | PN ---
S CIWA - CIWA Score Nausea/Vomitin Muscle Tremors: 3 Anxiety: 3 Agitation: 2 Paroxysmal Sweats: 1-Minimal Palms Moist Orientation: 0-Oriented Tacttile Disturbances: 1-Very Mild Itch/Numbness Auditory Disturbances: 1-Very Mild Visual Disturbances: 0-None Headache: 2-Mild CIWA-Ar Total Score: 16 BHS Progress Note (SOAP) Subjective: alert,irritable,anxious,interrupted sleep,tremor,sore throat, Objective: 01/15/17 09:37 Vital Signs Temperature 98.1 F 01/15/17 06:17 Pulse Rate 98 H 01/15/17 06:17 Respiratory Rate 20 01/15/17 06:17 Blood Pressure 108/71 01/15/17 06:17 O2 Sat by Pulse Oximetry (%) Laboratory Last Values WBC 9.3 K/mm3 (4.0-10.0) 01/14/17 07:00 RBC 4.93 M/mm3 (3.60-5.2) 01/14/17 07:00 Hgb 13.1 GM/dL (10.7-15.3) 01/14/17 07:00 Hct 40.2 % (32.4-45.2) 01/14/17 07:00 MCV 81.6 fl (80-96) 01/14/17 07:00 MCH 26.5 pg (25.7-33.7) 01/14/17 07:00 MCHC 32.5 g/dl (32.0-36.0) 01/14/17 07:00 RDW 14.4 % (11.6-15.6) 01/14/17 07:00 Plt Count 153 K/MM3 (134-434) 01/14/17 07:00 MPV 8.8 fl (7.5-11.1) 01/14/17 07:00 Sodium 132 mmol/L (136-145) L 01/14/17 07:00 Potassium 3.1 mmol/L (3.5-5.1) L 01/14/17 07:00 Chloride 90 mmol/L (98-107) L 01/14/17 07:00 Carbon Dioxide 24 mmol/L (21-32) D 01/14/17 07:00 Anion Gap 18 (8-16) H 01/14/17 07:00 BUN 6 mg/dL (7-18) L D 01/14/17 07:00 Creatinine 0.7 mg/dL (0.55-1.02) 01/14/17 07:00 Creat Clearance w eGFR > 60 (>60) 01/14/17 07:00 Random Glucose 100 mg/dL (74-106) 01/14/17 07:00 Calcium 8.9 mg/dL (8.5-10.1) 01/14/17 07:00 Total Bilirubin 1.9 mg/dL (0.2-1.0) H 01/14/17 07:00 AST 122 U/L (15-37) H D 01/14/17 07:00 ALT 79 U/L (12-78) H D 01/14/17 07:00 Alkaline Phosphatase 148 U/L (45-117) H D 01/14/17 07:00 Total Protein 8.7 g/dl (6.4-8.2) H 01/14/17 07:00 Albumin 4.5 g/dl (3.4-5.0) D 01/14/17 07:00 Urine Color Straw 01/13/17 23:00 Urine Appearance Clear 01/13/17 23:00 Urine pH 5.0 (5.0-8.0) D 01/13/17 23:00 Ur Specific [place] 1.013 (1.001-1.035) 01/13/17 23:00 Urine Protein Negative (NEGATIVE) 01/13/17 23:00 Urine Glucose (UA) Negative (NEGATIVE) 01/13/17 23:00 Urine Ketones 2+ (NEGATIVE) H 01/13/17 23:00 Urine Blood 1+ (NEGATIVE) H 01/13/17 23:00 Urine Nitrite Negative (NEGATIVE) 01/13/17 23:00 Urine Bilirubin Negative (NEGATIVE) 01/13/17 23:00 Urine Urobilinogen Negative mg/dL (0.2-1.0) 01/13/17 23:00 Ur Leukocyte Esterase Negative (NEGATIVE) 01/13/17 23:00 RPR Titer Nonreactive (NONREACTIVE) 01/14/17 07:00 Assessment: 01/15/17 09:38 withdrawal symptom Plan: continue detox,uri,pharynx injected,amocillin 500 mgs po tid for 7 days, k dur 20 meq po bid hypokalemia k is 3.1 repeat cmp,inr in am
[2017-01-15] MEDS: amLODIPine BESYLATE 10 MG TABLET (FP) PO SCH (10:20)
[2017-01-15] MEDS: diazePAM 5 MG TABLET PO SCH ×2 (10:20→22:54)
[2017-01-15] MEDS: PRENATAL VITAMINS W/ FOLIC ACID TABLET (FP) PO SCH (10:20)
[2017-01-15] MEDS: HYDROCHLOROTHIAZIDE 25 MG TABLET (FP) PO SCH (10:20)
[2017-01-15] MEDS: AMOXICILLIN 500 MG CAPSULE (FP) PO SCH ×3 (10:20→22:54)
[2017-01-15] MEDS: POTASSIUM CHLORIDE TABS 20 MEQ TABLET.ER (FP) PO SCH ×2 (10:57→22:54)
[2017-01-15] MEDS: THIAMINE HCL 100 MG TABLET (FP) PO SCH (22:54)
[2017-01-16] MEDS: AMOXICILLIN 500 MG CAPSULE (FP) PO SCH ×3 (05:19→22:07)
[2017-01-16] MEDS: ACETAMINOPHEN 325 MG TABLET (FP) PO PRN ×2 (05:19→20:36)
[2017-01-16] MEDS: HYDROCHLOROTHIAZIDE 25 MG TABLET (FP) PO SCH (10:18)
[2017-01-16] MEDS: POTASSIUM CHLORIDE TABS 20 MEQ TABLET.ER (FP) PO SCH (10:18)
[2017-01-16] MEDS: PRENATAL VITAMINS W/ FOLIC ACID TABLET (FP) PO SCH (10:18)
[2017-01-16] MEDS: amLODIPine BESYLATE 10 MG TABLET (FP) PO SCH (10:18)
[2017-01-16] MEDS: diazePAM 5 MG TABLET PO SCH ×2 (10:18→22:07)
[2017-01-16 10:27] LABS: INR 1.04 (0.82-1.09); PROTHROMBIN TIME (PATIENT) 11.7 SEC (9.98-11.88)
--- NOTE | 2017-01-16 10:41 | PN ---
BHS Progress Note (SOAP) Subjective: interrupted sleep agitation I am feeling better Objective: 01/16/17 10:41 Vital Signs Temperature 97.0 F L 01/16/17 09:43 Pulse Rate 105 H 01/16/17 09:43 Respiratory Rate 18 01/16/17 09:43 Blood Pressure 124/87 01/16/17 09:43 O2 Sat by Pulse Oximetry (%) [id number] ambulating no acute distress Assessment: 01/16/17 10:41 withdrawal sx Plan: continue detox increase fluids d/c in am
[2017-01-16 10:43] LABS: ALBUMIN 3.9 g/dl (3.4-5.0); ALK PHOS 120 U/L (45-117); ANION GAP 13 (8-16); BILIRUBIN,TOTAL 1.4 mg/dL (0.2-1.0); CALCIUM 8.2 mg/dL (8.5-10.1); CO2 24 mmol/L (21-32); CREATININE 1.4 mg/dL (0.55-1.02); GLUCOSE,RANDOM 123 mg/dL (74-106); SGOT/AST 84 U/L (15-37); SGPT/ALT 76 U/L (12-78); TOT PROT 7.9 g/dl (6.4-8.2)
[2017-01-16] MEDS: POTASSIUM CHLORIDE ORAL LIQUID 20 MEQ/15 ML PO SCH ×4 (12:04→18:06)
[2017-01-16] MEDS: THIAMINE HCL 100 MG TABLET (FP) PO SCH (22:07)
[2017-01-16] MEDS: ZOLPIDEM TARTRATE 5 MG TABLET PO PRN (22:07)
[2017-01-17] MEDS: AMOXICILLIN 500 MG CAPSULE (FP) PO SCH (06:03)
[2017-01-17 06:09] VITALS: TEMP 96.6
--- NOTE | 2017-01-17 08:39 | PN ---
S Progress Note (SOAP) Subjective: alert,no complaint Objective: 01/17/17 08:32 Vital Signs Temperature 96.6 F L 01/17/17 06:08 Pulse Rate 94 H 01/17/17 06:08 Respiratory Rate 18 01/17/17 06:08 Blood Pressure 108/61 01/17/17 06:08 O2 Sat by Pulse Oximetry (%) Assessment: 01/17/17 08:33 no withdrawal symptom repeat k pending on k replacement Plan: patient would like to go home,did not want to wait for k level,discharge today with k replacement,follow up with after care [program as arrangement and her pmd for medical problem and hypokalemia,encourage to eat banana and citrus juice
--- NOTE | 2017-01-17 08:44 | DS ---
[facility] Detox Discharge Summary Admission Date: 01/13/17 Discharge Date: 01/17/17 - History Present History: Alcohol Dependence Additional Comments: follow up with after care program as arrangement and pmd for medical problem,bp and hypokalemia Pertinent Past History: essential hypertension obesity bronchitis syncope insomnia depression uri hypokalemia - Physical Exam Results Vital Signs: Vital Signs Temperature 96.6 F L 01/17/17 06:08 Pulse Rate 94 H 01/17/17 06:08 Respiratory Rate 18 01/17/17 06:08 Blood Pressure 108/61 01/17/17 06:08 O2 Sat by Pulse Oximetry (%) Pertinent Admission Physical Exam Findings: withdrawal symptom - Treatment Hospital Course: Detox Protocol Followed, Detoxed Safely, Responded well, Discharged Condition Good Patient has Accepted a Rehab Referral to: declined - Medication Discharge Medications: Ambulatory Orders Amlodipine Besylate [Norvasc -] 10 mg PO DAILY #30 tab 09/28/16 Hydrochlorothiazide 25 mg PO DAILY #30 tab 09/28/16 - Diagnosis (1) Alcohol dependence with uncomplicated withdrawal Current Visit: Yes Status: Acute (2) Bronchitis Current Visit: No Status: Acute (3) Essential hypertension Current Visit: No Status: Acute (4) Obesity Current Visit: No Status: Acute (5) Syncope Current Visit: No Status: Acute (6) Insomnia Current Visit: Yes Status: Acute (7) Depression Current Visit: Yes Status: Acute (8) Hypokalemia Current Visit: Yes Status: Acute - AMA Did Patient Leave Against Medical Advice: No
[2017-01-17] MEDS: HYDROCHLOROTHIAZIDE 25 MG TABLET (FP) PO SCH (09:43)
[2017-01-17] MEDS: amLODIPine BESYLATE 10 MG TABLET (FP) PO SCH (09:43)
[2017-01-17] MEDS: PRENATAL VITAMINS W/ FOLIC ACID TABLET (FP) PO SCH (09:44)
[2017-01-17] MEDS ORDERED: diazePAM 5 MG TABLET PO SCH (10:00)
[2017-01-17] MEDS ORDERED: POTASSIUM CHLORIDE TABS 20 MEQ TABLET.ER (FP) PO SCH (10:00)
[2017-01-17 10:32] VITALS: BP 142/61; PULSE 108
== END 2017-01-17 09:48 | disposition home or self-care (01) | DRG 897 ==
LOC: YASAS 18:17 → Y6N 20:05
PROVIDERS: ADMIT Internal Medicine; ATTEND Internal Medicine
PROC: HZ2ZZZZ Detoxification Services for Substance Abuse Treatment (ICD-10-PCS; principal; 2017-01-13)
DX: F10.230 Alcohol dependence with withdrawal, uncomplicated (principal); F32.9 Major depressive disorder, single episode, unspecified; R00.0 Tachycardia, unspecified; I10 Essential (primary) hypertension; J20.9 Acute bronchitis, unspecified; G47.00 Insomnia, unspecified; E87.6 Hypokalemia; E66.9 Obesity, unspecified; Z68.32 Body mass index [BMI] 32.0-32.9, adult; Z86.79 Personal history of other diseases of the circulatory system; Z88.6 Allergy status to analgesic agent
CPT/HCPCS: 36415; 80053; 81003; 81015; 84132; 85027; 85610; 86593; 93005; 93010

== ENCOUNTER 2017-02-22 12:20 | Inpatient (IN) | payer OTHER ==
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
[2017-02-22 12:52] VITALS: BMI 39.7
[2017-02-22] MEDS ORDERED: MAG HYDROX/AL HYDROX/SIMETH 30 ML UNIT-DOSE CUP PO PRN (13:07)
[2017-02-22] MEDS ORDERED: ACETAMINOPHEN 325 MG TABLET (FP) PO PRN (13:07)
[2017-02-22] MEDS ORDERED: MAGNESIUM CITRATE 300 ML BOTTLE PO PRN (13:07)
[2017-02-22] MEDS ORDERED: diazePAM 5 MG TABLET PO ONE (13:07)
[2017-02-22] MEDS ORDERED: LOPERAMIDE HCL 2 MG CAPSULE PO PRN (13:07)
[2017-02-22] MEDS ORDERED: P-EPHED 60MG/TRIPROLIDI 2.5MG TABLET PO PRN (13:07)
[2017-02-22] MEDS ORDERED: MAGNESIUM HYDROX 2400MG/30ML ORAL SUSPENSION 30 ML CUP PO PRN (13:07)
[2017-02-22] MEDS ORDERED: guaiFENesin/D-METHORPHAN HB 10 ML UNIT-DOSE CUPS PO PRN (13:07)
[2017-02-22] MEDS: diazePAM 5 MG TABLET PO SCH ×2 (14:49→22:28)
[2017-02-22] MEDS: SILVER SULFADIAZINE 1% TOP CREAM 50 GM JAR TP SCH (15:09)
[2017-02-22 17:49] LABS: URINE APPEARANCE SLCLOUDY; URINE BILIRUBIN NEGATIVE (NEGATIVE); URINE BLOOD 1+ (NEGATIVE); URINE COLOR LTYELLOW; URINE GLUCOSE (UA) NEGATIVE (NEGATIVE); URINE KETONE TRACE (NEGATIVE); URINE LEUK ESTERASE TRACE (NEGATIVE); URINE NITRITE NEGATIVE (NEGATIVE); URINE PROTEIN NEGATIVE (NEGATIVE); URINE UROBILINOGEN NEGATIVE mg/dL (0.2-1.0)
[2017-02-22 17:58] LABS: EPI CELLS FEW /HPF (FEW); URINE BACTERIA RARE /hpf (NONE SEEN); URINE HYALINE CAST 9 /lpf; URINE MUCUS RARE
[2017-02-22] MEDS: diazePAM 5 MG TABLET PO PRN (19:01)
[2017-02-22] MEDS: hydrOXYzine PAMOATE 50 MG CAPSULE (FP) PO PRN (20:49)
[2017-02-22] MEDS: THIAMINE HCL 100 MG TABLET (FP) PO SCH (22:27)
[2017-02-23] MEDS: diazePAM 5 MG TABLET PO PRN ×3 (00:04→11:04)
[2017-02-23] MEDS: hydrOXYzine PAMOATE 50 MG CAPSULE (FP) PO PRN (00:55)
[2017-02-23] MEDS: MENTHOL/PHENOL 1 EACH UD MM PRN ×2 (01:10→23:06)
[2017-02-23] MEDS ORDERED: diphenhydrAMINE HCL 25 MG CAPSULE (FP) PO PRN (01:51)
[2017-02-23] MEDS ORDERED: amLODIPine BESYLATE 10 MG TABLET (FP) PO SCH ×2 (06:22→10:00)
[2017-02-23] MEDS: diazePAM 5 MG TABLET PO SCH ×3 (07:01→22:31)
[2017-02-23] MEDS: HYDROCHLOROTHIAZIDE 25 MG TABLET (FP) PO SCH (07:02)
[2017-02-23] MEDS: amLODIPine BESYLATE 10 MG TABLET (FP) PO SCH (07:18)
[2017-02-23 10:05] LABS: HEMATOCRIT 39.4 % (32.4-45.2); HEMOGLOBIN 12.7 GM/dL (10.7-15.3); MCH 26.8 pg (25.7-33.7); MCHC 32.3 g/dl (32.0-36.0); MEAN CELL VOLUME 83.1 fl (80-96); MEAN PLT VOLUME 8.5 fl (7.5-11.1); PLATELET COUNT 274 K/MM3 (134-434); RBC 4.74 M/mm3 (3.60-5.2); RDW 16.1 % (11.6-15.6); WHITE BLOOD COUNT 10.3 K/mm3 (4.0-10.0)
[2017-02-23] MEDS: PRENATAL VITAMINS W/ FOLIC ACID TABLET (FP) PO SCH (10:24)
[2017-02-23] MEDS: SILVER SULFADIAZINE 1% TOP CREAM 50 GM JAR TP SCH (10:24)
[2017-02-23 10:26] LABS: ALBUMIN 4.1 g/dl (3.4-5.0); ANION GAP 12 (8-16); BILIRUBIN,TOTAL 1.9 mg/dL (0.2-1.0); BLOOD UREA NITROGEN 12 mg/dL (7-18); CALCIUM 8.8 mg/dL (8.5-10.1); CHLORIDE 98 mmol/L (98-107); CO2 25 mmol/L (21-32); CREATININE 0.9 mg/dL (0.55-1.02); GLUCOSE,RANDOM 149 mg/dL (74-106); POTASSIUM 3.7 mmol/L (3.5-5.1); SGOT/AST 67 U/L (15-37); SGPT/ALT 37 U/L (12-78); SODIUM 135 mmol/L (136-145); TOT PROT 8.2 g/dl (6.4-8.2)
[2017-02-23 10:27] LABS: ALK PHOS 122 U/L (45-117)
--- NOTE | 2017-02-23 10:35 | EKG ---
Test Reason : Blood Pressure : / mmHG Vent. Rate : 103 BPM Atrial Rate : 103 BPM P-R Int : 156 ms QRS Dur : 078 ms QT Int : 330 ms P-R-T Axes : 068 -38 073 degrees QTc Int : 432 ms SINUS TACHYCARDIA POSSIBLE LEFT ATRIAL ENLARGEMENT LEFT AXIS DEVIATION ABNORMAL ECG WHEN COMPARED WITH ECG OF 13-JAN-2017 22:26, NO SIGNIFICANT CHANGE WAS FOUND BASELINE ARTIFACT Confirmed by EDGAR SWANSON, KERA ([id number]) on 02/23/2017 10:34:54 AM Referred By: Darrell Moss Confirmed By:KERA HERNÁNDEZ MD
--- NOTE | 2017-02-23 10:57 | CONSULT ---
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, domiciled seeking detox treatment for alcohol Substance Abuse History: Reports history of alcohol use. She started drinking alcohol at age 34, consumes one pint of liquor daily. Last drank on 02/22/17 Medical History: Significant for hypertension, obesity, past history of ob surgery for and orthosurgery for fracture of left ankle in 1999. Psychiatric History: Denies history of previous psychiatric treatment. However, reports experiencing dificulty to sleep Physical/Sexual Abuse/Trauma History: Denies history of verbal, physical or sexual abuse as well as DV relationship Additional Comment: No criminal history Mental Status Exam - Mental Status Exam Alert and Oriented to: Place, Person Cognitive Function: Fair Patient Appearance: Well Groomed Mood: Hopeful, Euthymic Patient Behavior: Cooperative Speech Pattern: Clear Voice Loudness: Normal Thought Process: Intact, Goal Oriented Thought Disorder: Not Present Hallucinations: Denies Suicidal Ideation: Denies Homicidal Ideation: Denies Insight/Judgement: Poor Sleep: Poorly Appetite: Good Muscle strength/Tone: Normal Gait/Station: Normal Psychiatric Findings - Problem List ([place] 1, 2,3) (1) Alcohol-induced sleep disorder Current Visit: Yes Status: Acute (2) Alcohol dependence with uncomplicated withdrawal Current Visit: Yes Status: Acute (3) Essential hypertension Current Visit: Yes Status: Chronic (4) Obesity Current Visit: Yes Status: Chronic Qualifiers: Obesity type: unspecified obesity type Obesity classification: adult class 2 (BMI 35 - 39.9) - Initial Treatment Plan Initial Treatment Plan: 1) Start Ambien 10 mg po HS prn for insomnia. 2) Continue inpatient detixification
[2017-02-23] MEDS ORDERED: ZOLPIDEM TARTRATE 5 MG TABLET PO PRN (11:26)
[2017-02-23] MEDS ORDERED: BACITRACIN 0.9 GM PACKET TP ONE (15:51)
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
[2017-02-23] MEDS ORDERED: BACITRACIN 0.9 GM PACKET TP SCH (22:00)
[2017-02-23] MEDS: THIAMINE HCL 100 MG TABLET (FP) PO SCH (22:31)
[2017-02-24] MEDS: HYDROCHLOROTHIAZIDE 25 MG TABLET (FP) PO SCH (05:26)
[2017-02-24] MEDS: amLODIPine BESYLATE 10 MG TABLET (FP) PO SCH (05:27)
[2017-02-24] MEDS: MENTHOL/PHENOL 1 EACH UD MM PRN (05:28)
--- NOTE | 2017-02-24 08:24 | PN ---
S CIWA - CIWA Score Nausea/Vomitin Muscle Tremors: 2 Anxiety: 3 Agitation: 3 Paroxysmal Sweats: 1-Minimal Palms Moist Orientation: 0-Oriented Tacttile Disturbances: 1-Very Mild Itch/Numbness Auditory Disturbances: 1-Very Mild Visual Disturbances: 0-None Headache: 2-Mild CIWA-Ar Total Score: 15 BHS Progress Note (SOAP) Subjective: ALERT,IRRITABLE,ANXIOUS,TREMOR,INTERRUPTED SLEEP Objective: 02/24/17 08:43 Vital Signs Temperature 97.5 F L 02/24/17 06:00 Pulse Rate 93 H 02/24/17 06:00 Respiratory Rate 18 02/24/17 06:00 Blood Pressure 151/88 02/24/17 06:00 O2 Sat by Pulse Oximetry (%) Assessment: 02/24/17 08:43 Laboratory Last Values WBC 10.3 K/mm3 (4.0-10.0) H 02/23/17 07:45 RBC 4.74 M/mm3 (3.60-5.2) 02/23/17 07:45 Hgb 12.7 GM/dL (10.7-15.3) 02/23/17 07:45 Hct 39.4 % (32.4-45.2) 02/23/17 07:45 MCV 83.1 fl (80-96) 02/23/17 07:45 MCH 26.8 pg (25.7-33.7) 02/23/17 07:45 MCHC 32.3 g/dl (32.0-36.0) 02/23/17 07:45 RDW 16.1 % (11.6-15.6) H D 02/23/17 07:45 Plt Count 274 K/MM3 (134-434) D 02/23/17 07:45 MPV 8.5 fl (7.5-11.1) 02/23/17 07:45 Sodium 135 mmol/L (136-145) L 02/23/17 07:45 Potassium 3.7 mmol/L (3.5-5.1) 02/23/17 07:45 Chloride 98 mmol/L (98-107) 02/23/17 07:45 Carbon Dioxide 25 mmol/L (21-32) 02/23/17 07:45 Anion Gap 12 (8-16) 02/23/17 07:45 BUN 12 mg/dL (7-18) D 02/23/17 07:45 Creatinine 0.9 mg/dL (0.55-1.02) D 02/23/17 07:45 Creat Clearance w eGFR > 60 (>60) 02/23/17 07:45 Random Glucose 149 mg/dL (74-106) H D 02/23/17 07:45 Calcium 8.8 mg/dL (8.5-10.1) 02/23/17 07:45 Total Bilirubin 1.9 mg/dL (0.2-1.0) H D 02/23/17 07:45 AST 67 U/L (15-37) H D 02/23/17 07:45 ALT 37 U/L (12-78) D 02/23/17 07:45 Alkaline Phosphatase 122 U/L (45-117) H 02/23/17 07:45 Total Protein 8.2 g/dl (6.4-8.2) 02/23/17 07:45 Albumin 4.1 g/dl (3.4-5.0) 02/23/17 07:45 Urine Color Ltyellow 02/22/17 15:56 Urine Appearance Slcloudy 02/22/17 15:56 Urine pH 6.0 (5.0-8.0) 02/22/17 15:56 Ur Specific [place] 1.010 (1.001-1.035) 02/22/17 15:56 Urine Protein Negative (NEGATIVE) 02/22/17 15:56 Urine Glucose (UA) Negative (NEGATIVE) 02/22/17 15:56 Urine Ketones Trace (NEGATIVE) H 02/22/17 15:56 Urine Blood 1+ (NEGATIVE) H 02/22/17 15:56 Urine Nitrite Negative (NEGATIVE) 02/22/17 15:56 Urine Bilirubin Negative (NEGATIVE) 02/22/17 15:56 Urine Urobilinogen Negative mg/dL (0.2-1.0) 02/22/17 15:56 Ur Leukocyte Esterase Trace (NEGATIVE) H 02/22/17 15:56 Urine WBC (Auto) 5 /hpf (3-5) 02/22/17 15:56 Urine RBC (Auto) <1 /hpf (0-3) 02/22/17 15:56 Ur Epithelial Cells Few /HPF (FEW) 02/22/17 15:56 Urine Bacteria Rare /hpf (NONE SEEN) 02/22/17 15:56 Hyaline Casts 9 /lpf 02/22/17 15:56 Urine Mucus Rare 02/22/17 15:56 RPR Titer Nonreactive (NONREACTIVE) 02/23/17 07:45 Plan: WITHDRAWAL SYMPTOM.CONTINUE DETOX,BGM MONITORING
--- NOTE | 2017-02-24 08:53 | PN ---
[facility] Progress Note Note: PATIENT DID NOT WANT TO COMPLETE TREATMENT,STATED HAS TO GO TO WORK,SINGED RELEASE AMA, SEEN BY COUNSELOR,WILL FOLLOW UP WITH OUT PATIENT PROGRAM,ADVISE FOLLOW UP WITH PMD FOR MEDICAL PROBLEM
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
[2017-02-24] MEDS: PRENATAL VITAMINS W/ FOLIC ACID TABLET (FP) PO SCH (09:19)
[2017-02-24] MEDS ORDERED: diazePAM 5 MG TABLET PO SCH (10:00)
[2017-02-24] MEDS ORDERED: HYDROCHLOROTHIAZIDE 25 MG TABLET (FP) PO SCH (10:00)
[2017-02-24 10:39] VITALS: BP 140/90; PULSE 100; TEMP 97.8
[2017-02-26] MEDS ORDERED: diazePAM 5 MG TABLET PO SCH (10:00)
== END 2017-02-24 09:29 | disposition left against medical advice (07) | DRG 894 ==
LOC: YASAS 12:20 → Y6N 13:38
PROVIDERS: ADMIT Internal Medicine; ATTEND Internal Medicine
PROC: HZ2ZZZZ Detoxification Services for Substance Abuse Treatment (ICD-10-PCS; principal; 2017-02-22)
DX: F10.230 Alcohol dependence with withdrawal, uncomplicated (principal); F10.282 Alcohol dependence with alcohol-induced sleep disorder; I10 Essential (primary) hypertension; E66.9 Obesity, unspecified; Z68.39 Body mass index [BMI] 39.0-39.9, adult; R00.0 Tachycardia, unspecified; T30.0 Burn of unspecified body region, unspecified degree; S00.81XA Abrasion of other part of head, initial encounter; X08.8XXA Exposure to other specified smoke, fire and flames, initial encounter; X58.XXXA Exposure to other specified factors, initial encounter; Y93.9 Activity, unspecified; Y92.9 Unspecified place or not applicable; Z86.79 Personal history of other diseases of the circulatory system; Z88.8 Allergy status to other drugs, medicaments and biological substances; Z88.6 Allergy status to analgesic agent; Z91.040 Latex allergy status
CPT/HCPCS: 36415; 80053; 81003; 81015; 85027; 86593; 93005; 93010

== ENCOUNTER 2017-04-02 09:43 | Inpatient (IN) | payer OTHER ==
[2017-04-02 10:24] VITALS: BMI 38.7
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
[2017-04-02] MEDS ORDERED: guaiFENesin/D-METHORPHAN HB 10 ML UNIT-DOSE CUPS PO PRN (10:48)
[2017-04-02] MEDS ORDERED: IBUPROFEN 400 MG TABLET (FP) PO PRN (10:48)
[2017-04-02] MEDS ORDERED: MENTHOL/PHENOL 1 EACH UD MM PRN (10:48)
[2017-04-02] MEDS ORDERED: P-EPHED 60MG/TRIPROLIDI 2.5MG TABLET PO PRN (10:48)
[2017-04-02] MEDS ORDERED: LOPERAMIDE HCL 2 MG CAPSULE PO PRN (10:48)
[2017-04-02] MEDS ORDERED: MAG HYDROX/AL HYDROX/SIMETH 30 ML UNIT-DOSE CUP PO PRN (10:48)
[2017-04-02] MEDS ORDERED: MAGNESIUM HYDROX 2400MG/30ML ORAL SUSPENSION 30 ML CUP PO PRN (10:48)
[2017-04-02] MEDS ORDERED: MAGNESIUM CITRATE 300 ML BOTTLE PO PRN (10:48)
[2017-04-02] MEDS ORDERED: diazePAM 5 MG TABLET PO ONE (11:50)
[2017-04-02] MEDS ORDERED: LIDOCAINE 5% TOPICAL PATCH TP ONE (11:50)
[2017-04-02] MEDS: amLODIPine BESYLATE 10 MG TABLET (FP) PO SCH (12:35)
[2017-04-02] MEDS: HYDROCHLOROTHIAZIDE 25 MG TABLET (FP) PO SCH (12:35)
[2017-04-02] MEDS: ACETAMINOPHEN 325 MG TABLET (FP) PO PRN ×2 (12:37→20:44)
[2017-04-02] MEDS: diazePAM 5 MG TABLET PO SCH ×2 (15:03→22:26)
--- NOTE | 2017-04-02 15:23 | CONSULT ---
[facility] Psychiatric Consult - Data Date of interview: 04/02/17 Admission source: [facility] Identifying data: Pt. 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 This is one of multiple admissions for patient. Pt. admitted to for alcohol dependence. Substance Abuse History: Following information confirmed with Ms. Langley: Smoking history: Never smoked. Have you smoked in the past 12 months: No. Hx Chewing Tobacco Use: No. Initiated information on smoking cessation: No. - Substance & Tx. History. Hx Alcohol Use: Yes. Hx Substance Use: No. Substance Use Type: Alcohol. Hx Substance Use Treatment: Yes ([facility] 01/2017) . - Substances Abused. Alcohol. Route: Oral. Frequency: Daily. Amount used: 1-2 [place]. Age of first use: 53. Date of Last Use: 04/02/17 Medical History: Hypertension, section 06/2000 Psychiatric History: Pt. denies h/o psychiatric hospitalizations, suicide attempts, and outpatient care. Pt. denies suicidal and homicidal ideation. Physical/Sexual Abuse/Trauma History: Denies. Mental Status Exam - Mental Status Exam Alert and Oriented to: Time, Place, Person Cognitive Function: Good Patient Appearance: Well Groomed Mood: Euthymic Affect: Mood Congruent Patient Behavior: Cooperative Speech Pattern: Appropriate Voice Loudness: Normal Thought Process: Goal Oriented Thought Disorder: Not Present Hallucinations: Denies Suicidal Ideation: Denies Homicidal Ideation: Denies Insight/Judgement: Poor Sleep: Poorly Appetite: Fair Muscle strength/Tone: Normal Gait/Station: Normal Psychiatric Findings - Problem List ([place] 1, 2,3) (1) Alcohol dependence with uncomplicated withdrawal Current Visit: Yes Status: Acute (2) Insomnia Current Visit: Yes Status: Acute - Initial Treatment Plan Initial Treatment Plan: Psychoeducation provided. Detoxification in progress. Ambien 10mg qhs prn ordered. Pt. reports favorable effect from previously taking ambien. Benefits and side effects (sleep walking) discussed. Verbal consent given. Will continue to monitor.
[2017-04-02] MEDS: hydrOXYzine PAMOATE 50 MG CAPSULE (FP) PO PRN ×2 (15:32→19:53)
[2017-04-02 17:10] LABS: URINE APPEARANCE SLCLOUDY; URINE BILIRUBIN NEGATIVE (NEGATIVE); URINE BLOOD NEGATIVE (NEGATIVE); URINE COLOR AMBER; URINE GLUCOSE (UA) NEGATIVE (NEGATIVE); URINE KETONE TRACE (NEGATIVE); URINE NITRITE NEGATIVE (NEGATIVE); URINE UROBILINOGEN 4.0 E.U/dl mg/dL (0.2-1.0)
[2017-04-02 17:11] LABS: URINE LEUK ESTERASE 1+ (NEGATIVE); URINE PROTEIN 1+ (NEGATIVE)
[2017-04-02 17:16] LABS: EPI CELLS RARE /HPF (FEW); URINE MUCUS MODERATE
[2017-04-02] MEDS: diazePAM 5 MG TABLET PO PRN (17:48)
[2017-04-02] MEDS ORDERED: LIDOCAINE PATCH REMOVAL MC SCH (22:00)
[2017-04-02] MEDS: ZOLPIDEM TARTRATE 10 MG TABLET (PARK CARE ONLY) PO PRN (22:25)
[2017-04-02] MEDS: THIAMINE HCL 100 MG TABLET (FP) PO SCH (22:25)
[2017-04-03] MEDS: diazePAM 5 MG TABLET PO PRN ×3 (01:38→16:49)
[2017-04-03] MEDS: ACETAMINOPHEN 325 MG TABLET (FP) PO PRN ×2 (01:44→14:15)
[2017-04-03] MEDS: hydrOXYzine PAMOATE 50 MG CAPSULE (FP) PO PRN ×3 (03:02→22:30)
[2017-04-03] MEDS: diazePAM 5 MG TABLET PO SCH ×3 (05:35→22:30)
[2017-04-03] MEDS ORDERED: METHOCARBAMOL 500 MG TABLET PO ONE (08:47)
[2017-04-03 10:20] LABS: HEMATOCRIT 33.1 % (32.4-45.2); HEMOGLOBIN 10.7 GM/dL (10.7-15.3); MCH 27.3 pg (25.7-33.7); MCHC 32.2 g/dl (32.0-36.0); MEAN CELL VOLUME 84.6 fl (80-96); MEAN PLT VOLUME 9.1 fl (7.5-11.1); PLATELET COUNT 122 K/MM3 (134-434); RBC 3.91 M/mm3 (3.60-5.2); RDW 17.1 % (11.6-15.6); WHITE BLOOD COUNT 3.2 K/mm3 (4.0-10.0)
[2017-04-03 10:22] LABS: CHLORIDE 104 mmol/L (98-107); POTASSIUM 3.5 mmol/L (3.5-5.1); SODIUM 140 mmol/L (136-145)
[2017-04-03 10:29] LABS: ALK PHOS 135 U/L (45-117); ANION GAP 12 (8-16); BILIRUBIN,TOTAL 0.8 mg/dL (0.2-1.0); BLOOD UREA NITROGEN 10 mg/dL (7-18); CALCIUM 7.4 mg/dL (8.5-10.1); CO2 24 mmol/L (21-32); CREATININE 0.6 mg/dL (0.55-1.02); GLUCOSE,RANDOM 85 mg/dL (74-106); SGOT/AST 196 U/L (15-37); SGPT/ALT 112 U/L (12-78); TOT PROT 7.5 g/dl (6.4-8.2)
[2017-04-03] MEDS: BACITRACIN 0.9 GM PACKET TP SCH (10:56)
[2017-04-03] MEDS: amLODIPine BESYLATE 10 MG TABLET (FP) PO SCH (10:56)
[2017-04-03] MEDS: PRENATAL VITAMINS W/ FOLIC ACID TABLET (FP) PO SCH (10:56)
[2017-04-03] MEDS: HYDROCHLOROTHIAZIDE 25 MG TABLET (FP) PO SCH (10:56)
[2017-04-03] MEDS: SILVER SULFADIAZINE 1% TOP CREAM 50 GM JAR TP SCH (10:57)
[2017-04-03] MEDS: LIDOCAINE 5% TOPICAL PATCH TP SCH (10:57)
--- NOTE | 2017-04-03 11:13 | PN ---
S CIWA - CIWA Score Nausea/Vomitin-Mild Nausea/No Vomiting Muscle Tremors: 4-Moderate,w/Arms Extend Anxiety: 4-Mod. Anxious/Guarded Agitation: 3 Paroxysmal Sweats: 1-Minimal Palms Moist Orientation: 0-Oriented Tacttile Disturbances: 0-None Auditory Disturbances: 0-None Visual Disturbances: 0-None Headache: 0-None Present CIWA-Ar Total Score: 13 BHS Progress Note (SOAP) Subjective: sweat tremor anxiety mild irritable Objective: 04/03/17 11:12 Vital Signs Temperature 97.7 F 04/03/17 10:29 Pulse Rate 119 H 04/03/17 10:29 Respiratory Rate 20 04/03/17 10:29 Blood Pressure 138/72 04/03/17 10:29 O2 Sat by Pulse Oximetry (%) Laboratory Last Values WBC 3.2 K/mm3 (4.0-10.0) L D 04/03/17 06:00 RBC 3.91 M/mm3 (3.60-5.2) 04/03/17 06:00 Hgb 10.7 GM/dL (10.7-15.3) D 04/03/17 06:00 Hct 33.1 % (32.4-45.2) D 04/03/17 06:00 MCV 84.6 fl (80-96) 04/03/17 06:00 MCH 27.3 pg (25.7-33.7) 04/03/17 06:00 MCHC 32.2 g/dl (32.0-36.0) 04/03/17 06:00 RDW 17.1 % (11.6-15.6) H 04/03/17 06:00 Plt Count 122 K/MM3 (134-434) L D 04/03/17 06:00 MPV 9.1 fl (7.5-11.1) 04/03/17 06:00 Sodium 140 mmol/L (136-145) 04/03/17 06:00 Potassium 3.5 mmol/L (3.5-5.1) 04/03/17 06:00 Chloride 104 mmol/L (98-107) 04/03/17 06:00 Carbon Dioxide 24 mmol/L (21-32) 04/03/17 06:00 Anion Gap 12 (8-16) 04/03/17 06:00 BUN 10 mg/dL (7-18) 04/03/17 06:00 Creatinine 0.6 mg/dL (0.55-1.02) 04/03/17 06:00 Creat Clearance w eGFR > 60 (>60) 04/03/17 06:00 Random Glucose 85 mg/dL (74-106) 04/03/17 06:00 Calcium 7.4 mg/dL (8.5-10.1) L 04/03/17 06:00 Total Bilirubin 0.8 mg/dL (0.2-1.0) D 04/03/17 06:00 AST 196 U/L (15-37) H 04/03/17 06:00 ALT 112 U/L (12-78) H 04/03/17 06:00 Alkaline Phosphatase 135 U/L (45-117) H 04/03/17 06:00 Total Protein 7.5 g/dl (6.4-8.2) 04/03/17 06:00 Albumin 4.0 g/dl (3.4-5.0) 04/03/17 06:00 Urine Color Tamia 04/02/17 15:50 Urine Appearance Slcloudy 04/02/17 15:50 Urine pH 5.0 (5.0-8.0) 04/02/17 15:50 Ur Specific [place] 1.025 (1.001-1.035) 04/02/17 15:50 Urine Protein 1+ (NEGATIVE) H 04/02/17 15:50 Urine Glucose (UA) Negative (NEGATIVE) 04/02/17 15:50 Urine Ketones Trace (NEGATIVE) H 04/02/17 15:50 Urine Blood Negative (NEGATIVE) 04/02/17 15:50 Urine Nitrite Negative (NEGATIVE) 04/02/17 15:50 Urine Bilirubin Negative (NEGATIVE) 04/02/17 15:50 Urine Urobilinogen 4.0 e.u/dl mg/dL (0.2-1.0) H 04/02/17 15:50 Ur Leukocyte Esterase 1+ (NEGATIVE) H 04/02/17 15:50 Urine WBC (Auto) 8 /hpf (3-5) 04/02/17 15:50 Urine RBC (Auto) 1 /hpf (0-3) 04/02/17 15:50 Ur Epithelial Cells Rare /HPF (FEW) 04/02/17 15:50 Urine Mucus Moderate 04/02/17 15:50 lab noted Assessment: 04/03/17 11:12 withdrawal sx Plan: continue detox
--- NOTE | 2017-04-03 12:15 | EKG ---
Test Reason : Blood Pressure : / mmHG Vent. Rate : 098 BPM Atrial Rate : 098 BPM P-R Int : 166 ms QRS Dur : 082 ms QT Int : 360 ms P-R-T Axes : 070 -16 087 degrees QTc Int : 459 ms NORMAL SINUS RHYTHM POSSIBLE LEFT ATRIAL ENLARGEMENT NONSPECIFIC T WAVE ABNORMALITY ABNORMAL ECG WHEN COMPARED WITH ECG OF 22-FEB-2017 15:34, CRITERIA FOR INFERIOR INFARCT ARE NO LONGER PRESENT Confirmed by TE SWANSON, JENNIFER ([id number]) on 04/03/2017 12:15:06 PM Referred By: Confirmed By:JENNIFER TIWARI MD
[2017-04-03] MEDS: THIAMINE HCL 100 MG TABLET (FP) PO SCH (22:30)
[2017-04-03] MEDS: ZOLPIDEM TARTRATE 10 MG TABLET (PARK CARE ONLY) PO PRN (22:30)
[2017-04-03] MEDS: MINERAL OIL/PETROLAT/WATER TOPICAL CREAM 113 GM JAR TP SCH (22:31)
[2017-04-03] MEDS: LIDOCAINE PATCH REMOVAL MC SCH (22:31)
[2017-04-04] MEDS: ACETAMINOPHEN 325 MG TABLET (FP) PO PRN (06:14)
[2017-04-04] MEDS: diazePAM 5 MG TABLET PO PRN (06:14)
[2017-04-04] MEDS: BACITRACIN 0.9 GM PACKET TP SCH (10:51)
[2017-04-04] MEDS: PRENATAL VITAMINS W/ FOLIC ACID TABLET (FP) PO SCH (10:52)
[2017-04-04] MEDS: HYDROCHLOROTHIAZIDE 25 MG TABLET (FP) PO SCH (10:52)
[2017-04-04] MEDS: amLODIPine BESYLATE 10 MG TABLET (FP) PO SCH (10:52)
[2017-04-04] MEDS: diazePAM 5 MG TABLET PO SCH ×2 (10:53→22:27)
[2017-04-04] MEDS: LIDOCAINE 5% TOPICAL PATCH TP SCH (10:53)
[2017-04-04] MEDS: SILVER SULFADIAZINE 1% TOP CREAM 50 GM JAR TP SCH (10:53)
--- NOTE | 2017-04-04 11:59 | PN ---
[facility] CIWA - CIWA Score Nausea/Vomitin-No Nausea/No Vomiting Muscle Tremors: 3 Anxiety: 3 Agitation: 3 Paroxysmal Sweats: 2 Orientation: 0-Oriented Tacttile Disturbances: 0-None Auditory Disturbances: 0-None Visual Disturbances: 0-None Headache: 0-None Present CIWA-Ar Total Score: 11 S Progress Note (SOAP) Subjective: agitation sweats shakes Objective: 04/04/17 11:58 Vital Signs Temperature 95.4 F L 04/04/17 11:53 Pulse Rate 103 H 04/04/17 11:53 Respiratory Rate 16 04/04/17 11:53 Blood Pressure 142/88 04/04/17 11:53 O2 Sat by Pulse Oximetry (%) Laboratory Tests 04/02/17 04/03/17 04/03/17 15:50 06:00 06:00 WBC 3.2 L D RBC 3.91 Hgb 10.7 D Hct 33.1 D MCV 84.6 MCH 27.3 MCHC 32.2 RDW 17.1 H Plt Count 122 L D MPV 9.1 Sodium 140 Potassium 3.5 Chloride 104 Carbon Dioxide 24 Anion Gap 12 BUN 10 Creatinine 0.6 Creat Clearance w eGFR > 60 Random Glucose 85 Calcium 7.4 L Total Bilirubin 0.8 D AST 196 H ALT 112 H Alkaline Phosphatase 135 H Total Protein 7.5 Albumin 4.0 Urine Color Tamia Urine Appearance Slcloudy Urine pH 5.0 Ur Specific [place] 1.025 Urine Protein 1+ H Urine Glucose (UA) Negative Urine Ketones Trace H Urine Blood Negative Urine Nitrite Negative Urine Bilirubin Negative Urine Urobilinogen 4.0 e.u/dl H Ur Leukocyte Esterase 1+ H Urine WBC (Auto) 8 Urine RBC (Auto) 1 Ur Epithelial Cells Rare Urine Mucus Moderate RPR Titer 04/03/17 06:00 WBC RBC Hgb Hct MCV MCH MCHC RDW Plt Count MPV Sodium Potassium Chloride Carbon Dioxide Anion Gap BUN Creatinine Creat Clearance w eGFR Random Glucose Calcium Total Bilirubin AST ALT Alkaline Phosphatase Total Protein Albumin Urine Color Urine Appearance Urine pH Ur Specific [place] Urine Protein Urine Glucose (UA) Urine Ketones Urine Blood Urine Nitrite Urine Bilirubin Urine Urobilinogen Ur Leukocyte Esterase Urine WBC (Auto) Urine RBC (Auto) Ur Epithelial Cells Urine Mucus RPR Titer Nonreactive aaox3 ambulating elevated ast/alt; d/c tylenol Assessment: 04/04/17 12:00 withdrawal sx Plan: continue detox increase fluids
[2017-04-04] MEDS: ZOLPIDEM TARTRATE 10 MG TABLET (PARK CARE ONLY) PO PRN (22:27)
[2017-04-04] MEDS: THIAMINE HCL 100 MG TABLET (FP) PO SCH (22:27)
[2017-04-04] MEDS: LIDOCAINE PATCH REMOVAL MC SCH (23:01)
[2017-04-04] MEDS: MINERAL OIL/PETROLAT/WATER TOPICAL CREAM 113 GM JAR TP SCH (23:01)
[2017-04-05 10:33] LABS: SGOT/AST 246 U/L (15-37); SGPT/ALT 134 U/L (12-78)
[2017-04-05] MEDS: PRENATAL VITAMINS W/ FOLIC ACID TABLET (FP) PO SCH (10:41)
[2017-04-05] MEDS: HYDROCHLOROTHIAZIDE 25 MG TABLET (FP) PO SCH (10:41)
[2017-04-05] MEDS: BACITRACIN 0.9 GM PACKET TP SCH (10:42)
[2017-04-05] MEDS: amLODIPine BESYLATE 10 MG TABLET (FP) PO SCH (10:42)
[2017-04-05] MEDS: diazePAM 5 MG TABLET PO SCH ×2 (10:43→22:41)
[2017-04-05] MEDS: SILVER SULFADIAZINE 1% TOP CREAM 50 GM JAR TP SCH (13:28)
[2017-04-05] MEDS: LIDOCAINE 5% TOPICAL PATCH TP SCH (13:28)
[2017-04-05] MEDS ORDERED: ACETAMINOPHEN 325 MG TABLET (FP) PO PRN (18:15)
--- NOTE | 2017-04-05 19:17 | PN ---
BHS Progress Note (SOAP) Subjective: shakes sleep disturbance Objective: 04/05/17 19:16 A & O x 3 Ambulating steadily on unit Anxious Assessment: 04/05/17 19:16 withdrawal sx Plan: continue detox
[2017-04-05] MEDS: ALBUTEROL SO4 18 GM HFA INHALER IH PRN (19:28)
[2017-04-05] MEDS: MINERAL OIL/PETROLAT/WATER TOPICAL CREAM 113 GM JAR TP SCH (22:40)
[2017-04-05] MEDS: THIAMINE HCL 100 MG TABLET (FP) PO SCH (22:41)
[2017-04-05] MEDS: LIDOCAINE PATCH REMOVAL MC SCH (22:41)
[2017-04-05] MEDS: hydrOXYzine PAMOATE 50 MG CAPSULE (FP) PO PRN (22:43)
[2017-04-06] MEDS: ALBUTEROL SO4 18 GM HFA INHALER IH PRN (06:30)
[2017-04-06] MEDS: PRENATAL VITAMINS W/ FOLIC ACID TABLET (FP) PO SCH (09:09)
[2017-04-06] MEDS: HYDROCHLOROTHIAZIDE 25 MG TABLET (FP) PO SCH (09:11)
[2017-04-06] MEDS: amLODIPine BESYLATE 10 MG TABLET (FP) PO SCH (09:15)
--- NOTE | 2017-04-06 09:33 | DS ---
[facility] Detox Discharge Summary Admission Date: 04/02/17 Discharge Date: 04/06/17 - History Present History: Alcohol Dependence - Physical Exam Results Vital Signs: Vital Signs Temperature 97.9 F 04/06/17 06:00 Pulse Rate 117 H 04/06/17 06:00 Respiratory Rate 18 04/06/17 06:00 Blood Pressure 113/81 04/06/17 06:00 O2 Sat by Pulse Oximetry (%) Pertinent Admission Physical Exam Findings: withdrawal sx Vital Signs Temperature 97.9 F 04/06/17 06:00 Pulse Rate 117 H 04/06/17 06:00 Respiratory Rate 18 04/06/17 06:00 Blood Pressure 113/81 04/06/17 06:00 O2 Sat by Pulse Oximetry (%) Laboratory Last Values WBC 3.2 K/mm3 (4.0-10.0) L D 04/03/17 06:00 RBC 3.91 M/mm3 (3.60-5.2) 04/03/17 06:00 Hgb 10.7 GM/dL (10.7-15.3) D 04/03/17 06:00 Hct 33.1 % (32.4-45.2) D 04/03/17 06:00 MCV 84.6 fl (80-96) 04/03/17 06:00 MCH 27.3 pg (25.7-33.7) 04/03/17 06:00 MCHC 32.2 g/dl (32.0-36.0) 04/03/17 06:00 RDW 17.1 % (11.6-15.6) H 04/03/17 06:00 Plt Count 122 K/MM3 (134-434) L D 04/03/17 06:00 MPV 9.1 fl (7.5-11.1) 04/03/17 06:00 Sodium 140 mmol/L (136-145) 04/03/17 06:00 Potassium 3.5 mmol/L (3.5-5.1) 04/03/17 06:00 Chloride 104 mmol/L (98-107) 04/03/17 06:00 Carbon Dioxide 24 mmol/L (21-32) 04/03/17 06:00 Anion Gap 12 (8-16) 04/03/17 06:00 BUN 10 mg/dL (7-18) 04/03/17 06:00 Creatinine 0.6 mg/dL (0.55-1.02) 04/03/17 06:00 Creat Clearance w eGFR > 60 (>60) 04/03/17 06:00 Random Glucose 85 mg/dL (74-106) 04/03/17 06:00 Calcium 7.4 mg/dL (8.5-10.1) L 04/03/17 06:00 Total Bilirubin 0.8 mg/dL (0.2-1.0) D 04/03/17 06:00 AST 246 U/L (15-37) H 04/05/17 08:00 ALT 134 U/L (12-78) H 04/05/17 08:00 Alkaline Phosphatase 135 U/L (45-117) H 04/03/17 06:00 Total Protein 7.5 g/dl (6.4-8.2) 04/03/17 06:00 Albumin 4.0 g/dl (3.4-5.0) 04/03/17 06:00 Urine Color Tamia 04/02/17 15:50 Urine Appearance Slcloudy 04/02/17 15:50 Urine pH 5.0 (5.0-8.0) 04/02/17 15:50 Ur Specific [place] 1.025 (1.001-1.035) 04/02/17 15:50 Urine Protein 1+ (NEGATIVE) H 04/02/17 15:50 Urine Glucose (UA) Negative (NEGATIVE) 04/02/17 15:50 Urine Ketones Trace (NEGATIVE) H 04/02/17 15:50 Urine Blood Negative (NEGATIVE) 04/02/17 15:50 Urine Nitrite Negative (NEGATIVE) 04/02/17 15:50 Urine Bilirubin Negative (NEGATIVE) 04/02/17 15:50 Urine Urobilinogen 4.0 e.u/dl mg/dL (0.2-1.0) H 04/02/17 15:50 Ur Leukocyte Esterase 1+ (NEGATIVE) H 04/02/17 15:50 Urine WBC (Auto) 8 /hpf (3-5) 04/02/17 15:50 Urine RBC (Auto) 1 /hpf (0-3) 04/02/17 15:50 Ur Epithelial Cells Rare /HPF (FEW) 04/02/17 15:50 Urine Mucus Moderate 04/02/17 15:50 RPR Titer Nonreactive (NONREACTIVE) 04/03/17 06:00 lab noted health teaching on important of free from alcohol consumption in relation to liver pathological insult patient committed to sobriety and verbalized recovery strategies - Treatment Hospital Course: Detox Protocol Followed, Detoxed Safely, Responded well, Discharged Condition Good, Rehab Referral Accepted Patient has Accepted a Rehab Referral to: as per counselor arranged - Medication Discharge Medications: Ambulatory Orders Amlodipine Besylate [Norvasc -] 10 mg PO DAILY #30 tab 04/06/17 Hydrochlorothiazide [Hctz -] 25 mg PO DAILY #30 tablet 04/06/17 - Diagnosis (1) Alcohol dependence with uncomplicated withdrawal Current Visit: Yes Status: Acute (2) Essential hypertension Current Visit: Yes Status: Chronic - AMA Did Patient Leave Against Medical Advice: No
[2017-04-06] MEDS ORDERED: diazePAM 5 MG TABLET PO SCH (10:00)
[2017-04-06 10:20] VITALS: BP 109/62; PULSE 95; TEMP 96.4
== END 2017-04-06 09:32 | disposition home or self-care (01) | DRG 775 ==
LOC: YASAS 09:43 → Y6N 11:23
PROVIDERS: ADMIT Internal Medicine; ATTEND Internal Medicine
PROC: HZ2ZZZZ Detoxification Services for Substance Abuse Treatment (ICD-10-PCS; principal; 2017-04-02)
DX: F10.230 Alcohol dependence with withdrawal, uncomplicated (principal); F32.9 Major depressive disorder, single episode, unspecified; I10 Essential (primary) hypertension; E66.9 Obesity, unspecified; Z68.38 Body mass index [BMI] 38.0-38.9, adult; R74.0 Nonspecific elevation of levels of transaminase and lactic acid dehydrogenase [LDH]; G47.00 Insomnia, unspecified; Z88.8 Allergy status to other drugs, medicaments and biological substances; Z91.040 Latex allergy status
CPT/HCPCS: 36415; 80053; 81003; 81015; 84450; 84460; 85027; 86593; 93005; 93010

== ENCOUNTER 2019-09-30 09:58 | Inpatient (IN) | payer OTHER, BC ==
--- NOTE | 2019-09-30 10:55 | BHS.RME ---
Substance Use & Tx History - Substance Use History Alcohol Substance amount: 2 pints Vodka Frequency of use: Daily Substance route: Oral Date of Last Use: 09/30/19 (First use age 29 y. ? seizure in the Fall of 2018. Many blackouts, last was one year ago. 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) - Last Treatment Date of last treatment: Mar 2017 [facility] Treatment type: Substance Use Disorder (YESENIA) Where was last treatment: Detox Physical/Psych/Mental Status - Behavior General Behavior: Increased activity (restlessness, agitation) Eye Contact: Normal - Cooperativeness Cooperativeness: Cooperative - Thinking Thought Processes: Tight Thought content: Future oriented - Physical Health Problems Is patient presently having any pain?: No Does patient presently have any injuries (include location): No Does patient currently have a fever: No CIWA Nausea/Vomitin-No Nausea/No Vomiting Muscle Tremors: 4-Moderate,w/Arms Extend Anxiety: 3 Agitation: 0-Normal Activity Paroxysmal Sweats: No Perspiration Orientation: 2-Disoriented Date<2 days Tacttile Disturbances: 0-None Auditory Disturbances: 0-None Visual Disturbances: 0-None Headache: 0-None Present CIWA-Ar Total Score: 9
--- NOTE | 2019-09-30 11:29 | HP ---
CIWA Score Nausea/Vomitin-No Nausea/No Vomiting Muscle Tremors: 4-Moderate,w/Arms Extend Anxiety: 3 Agitation: 0-Normal Activity Paroxysmal Sweats: No Perspiration Orientation: 2-Disoriented Date<2 days Tacttile Disturbances: 0-None Auditory Disturbances: 0-None Visual Disturbances: 0-None Headache: 0-None Present CIWA-Ar Total Score: 9 - Admission Criteria OASAS Guidelines: Admission for Medically Managed Detox: Requires at least one of the followin. CIWA greater than 12 2. Seizures within the past 24 hours 3. Delirium tremens within the past 24 hours 4. Hallucinations within the past 24 hours 5. Acute intervention needed for co occurring medical disorder 6. Acute intervention needed for co occurring psychiatric disorder 7. Severe withdrawal that cannot be handled at a lower level of care (continued vomiting, continued diarrhea, abnormal vital signs) requiring intravenous medication and/or fluids 8. Admitting History and Physical - Admission Chief Complaint: presents to [facility] stating "I want to detox from alcohol permanently". History of Present Illness: presents to [facility] stating "I want to detox from alcohol permanently". She was last here in March 2017. After detox she attended rehab [facility] an [facility]. She was getting Vivitrol injections but, they were stopped due to GI upset. She relapsed in April of this year. At that time, she lost her intensive outpatient program. She states she was at [facility] last week and yesterday for alcohol withdrawal. She states she was treated with Ativan. She states that she had a CT that demonstrated thyroid nodules. The reason for the CT is unknown. PMH: HTN PSH: C section ,fractured left ankle Psych: no SOC: own place Legal: none - Substance Use History Alcohol Substance amount: 2 pints Vodka Frequency of use: Daily Substance route: Oral Date of Last Use: 09/30/19 (First use age 29 y. ? seizure in the Fall of 2018. Many blackouts, last was one year ago. 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 Pt at high risk for relapse. History Source: Patient Limitations to Obtaining History: No Limitations - Smoking History Smoking history: Never smoked Have you smoked in the past 12 months: No - Alcohol/Substance Use Hx Alcohol Use: Yes Admission ROS S - HPI Allergies/Adverse Reactions: Allergies Allergy/AdvReac Type Severity Reaction Status Date / Time ibuprofen [From Motrin] Allergy Intermediate Swelling Verified 02/22/17 13:03 latex Allergy Intermediate Itching Verified 04/02/17 10:19 Exam Limitations: No Limitations - Ebola screening Have you traveled outside of the country in the last 21 days: No Have you been sick,other than usual withdrawal symptoms: No Do you have a fever: No - Review of Systems Constitutional: No Symptoms Reported EENT: reports: No Symptoms Reported Respiratory: reports: No Symptoms reported Cardiac: reports: No Symptoms Reported GI: reports: No Symptoms Reported : reports: No Symptoms Reported Musculoskeletal: reports: Other (arthritis knees, right shoulder) Integumentary: reports: Dryness Neuro: denies: Headache Endocrine: reports: No Symptoms Reported Hematology: denies: Blood Clots, Easy Bleeding, Easy Bruising Psychiatric: reports: Anxious Patient History - Patient Medical History Hx Anemia: No Hx Asthma: No Hx Chronic Obstructive Pulmonary Disease (COPD): No Hx Cancer: No Hx Cardiac Disorders: No Hx Congestive Heart Failure: No Hx Hypertension: Yes (ON MEDS.) Hx Hypercholesterolemia: No Hx Pacemaker: No HX Cerebrovascular Accident: No Hx Seizures: No Hx Dementia: No Hx Diabetes: No Hx Gastrointestinal Disorders: No Hx Liver Disease: No Hx Genitourinary Disorders: No Hx Sexually Transmitted Disorders: No Hx Renal Disease (ESRD): No Hx Thyroid Disease: No Hx Human Immunodeficiency Virus (HIV): No Hx Hepatitis C: No Hx Depression: Yes Hx Suicide Attempt: No Hx Bipolar Disorder: No Hx Schizophrenia: No - Patient Surgical History Past Surgical History: Yes Hx Neurologic Surgery: No Hx Cataract Extraction: No Hx Cardiac Surgery: No Hx Lung Surgery: No Hx Breast Surgery: No Hx Breast Biopsy: No Hx Abdominal Surgery: No Hx Appendectomy: No Hx Cholecystectomy: No Hx Genitourinary Surgery: No Hx Section: Yes (06/2000) Hx Orthopedic Surgery: Yes (left ankle in [facility]) Anesthesia Reaction: No - PPD History Date: 09/27/16 Results: 0 MM - Smoking Cessation Smoking history: Never smoked Have you smoked in the past 12 months: No Hx Chewing Tobacco Use: No Initiated information on smoking cessation: No Admission Physical Exam [facility] - Physical General Appearance: Yes: No Apparent Distress, Nourished, Appropriately Dressed, Anxious HEENTM: Yes: EOMI, Hearing grossly Normal, Normocephalic, Normal Voice Respiratory: Yes: Lungs Clear, Normal Breath Sounds, No Respiratory Distress, No Accessory Muscle Use Neck: Yes: Within Normal Limits, Supple Breast: Yes: Breast Exam Deferred Cardiology: Yes: Regular Rhythm, Regular Rate, S1, S2 Abdominal: Yes: Normal Bowel Sounds, Non Tender, Soft, Protuberent Genitourinary: Yes: Other (deferred) Back: Yes: Normal Inspection Musculoskeletal: Yes: Gait Steady Extremities: Yes: Normal Inspection, Non-Tender Neurological: Yes: Alert, Normal Response Integumentary: Yes: Dry - Diagnostic (1) Alcohol dependence with uncomplicated withdrawal Current Visit: Yes Status: Acute (2) Essential hypertension Current Visit: Yes Status: Chronic Cleared for Admission [facility] - Detox or Rehab [facility] Level of Care: Medically Managed Detox Regimen/Protocol: Ativan Breathalyzer - Breathalyzer Breathalyzer: 0.135 Urine Drug Screen - Test Device Lot number: [id number] Expiration date: 09/27/21 - Control Is test valid?: Yes - Results Drug screen NEGATIVE: No Urine drug screen results: BAR-Barbiturates, BZO-Benzodiazepines Inpatient Rehab Admission - Rehab Decision to Admit Inpatient rehab admission?: No
[2019-09-30] MEDS ORDERED: ONDANSETRON *ODT* 4 MG TABLET SL PRN (11:36)
[2019-09-30] MEDS ORDERED: METHOCARBAMOL 500 MG TABLET PO PRN (11:36)
[2019-09-30] MEDS ORDERED: IBUPROFEN 400 MG TABLET (FP) PO PRN (11:36)
[2019-09-30] MEDS ORDERED: ACETAMINOPHEN 325 MG TABLET (FP) PO PRN ×2 (11:36)
[2019-09-30] MEDS ORDERED: MAGNESIUM HYDROX 2400MG/30ML ORAL SUSPENSION 30 ML CUP PO PRN (11:36)
[2019-09-30] MEDS ORDERED: BISMUTH SUBSALICYLATE 524 MG/30 ML UD PO PRN (11:36)
[2019-09-30] MEDS ORDERED: MENTHOL/PHENOL 1 EACH UD MM PRN (11:36)
[2019-09-30] MEDS ORDERED: MAG HYDROX/AL HYDROX/SIMETH 30 ML UNIT-DOSE CUP PO PRN (11:36)
[2019-09-30] MEDS ORDERED: MAGNESIUM CITRATE 300 ML BOTTLE PO PRN (11:36)
[2019-09-30 12:13] VITALS: BMI 40.8
[2019-09-30] MEDS: amLODIPine BESYLATE 10 MG TABLET (FP) PO SCH (12:49)
[2019-09-30] MEDS: LORazepam 1 MG TABLET PO PRN ×2 (12:49→19:11)
[2019-09-30] MEDS: HYDROCHLOROTHIAZIDE 25 MG TABLET (FP) PO SCH (12:49)
[2019-09-30 13:10] LABS: HEMATOCRIT 36.1 % (32.4-45.2); HEMOGLOBIN 12.1 GM/dL (10.7-15.3); MCHC 33.5 g/dl (32.0-36.0); MEAN CELL VOLUME 86.7 fl (80-96); MEAN PLT VOLUME 8.4 fl (7.5-11.1); PLATELET COUNT 224 K/MM3 (134-434); RBC 4.16 M/mm3 (3.60-5.2); RDW 18.5 % (11.6-15.6); WHITE BLOOD COUNT 4.4 K/mm3 (4.0-10.0)
[2019-09-30 13:39] LABS: POTASSIUM 3.4 mmol/L (3.5-5.1)
[2019-09-30 14:17] LABS: ALBUMIN 3.9 g/dl (3.4-5.0); BILIRUBIN,TOTAL 0.9 mg/dL (0.2-1); BLOOD UREA NITROGEN 7.9 mg/dL (7-18); CALCIUM 8.3 mg/dL (8.5-10.1); CREATININE 0.8 mg/dL (0.55-1.3); TOT PROT 8.2 g/dl (6.4-8.2)
[2019-09-30] MEDS: hydrOXYzine PAMOATE 25 MG CAPSULE (FP) PO SCH ×3 (14:30→22:28)
[2019-09-30] MEDS: LORazepam 2 MG TABLET PO SCH ×2 (16:47→22:27)
[2019-09-30] MEDS ORDERED: cloNIDine HCL 0.1 MG TABLET PO ONE (21:57)
--- NOTE | 2019-09-30 22:00 | PN ---
BHS Progress Note Note: Patient's blood pressure is B/P 150/114. Vital Signs Temperature 97.3 F L 09/30/19 20:55 Pulse Rate 112 H 09/30/19 20:55 Respiratory Rate 20 09/30/19 20:55 Blood Pressure 150/114 H 09/30/19 20:55 O2 Sat by Pulse Oximetry (%) 96 09/30/19 20:55 Action: Clonidine 0.1mg tablet oral ordered
[2019-09-30] MEDS: THIAMINE HCL 100 MG TABLET (FP) PO SCH (22:28)
[2019-09-30] MEDS: MELATONIN 5 MG TABLETS PO SCH (22:28)
[2019-10-01] MEDS: LORazepam 2 MG TABLET PO SCH ×4 (06:57→22:18)
[2019-10-01] MEDS: hydrOXYzine PAMOATE 25 MG CAPSULE (FP) PO SCH ×5 (06:58→22:18)
[2019-10-01] MEDS: amLODIPine BESYLATE 10 MG TABLET (FP) PO SCH (10:34)
[2019-10-01] MEDS: HYDROCHLOROTHIAZIDE 25 MG TABLET (FP) PO SCH (10:35)
[2019-10-01] MEDS: PRENATAL VITAMINS W/ FOLIC ACID TABLET (FP) PO SCH (10:35)
--- NOTE | 2019-10-01 11:46 | PN ---
S CIWA - CIWA Score Nausea/Vomitin-No Nausea/No Vomiting Muscle Tremors: 1-None Visible, but [place] Anxiety: 1-Mildly Anxious Agitation: 0-Normal Activity Paroxysmal Sweats: No Perspiration Orientation: 0-Oriented Tacttile Disturbances: 0-None Auditory Disturbances: 0-None Visual Disturbances: 0-None Headache: 0-None Present CIWA-Ar Total Score: 2 BHS Progress Note (SOAP) Subjective: Feeling well Objective: 10/01/19 11:46 PE Gnl: WDWN, in bed resting quietly MS: nl mentation Motor: moves limbs well coord: nl Laboratory Tests 09/30/19 09/30/19 09/30/19 10:58 11:55 11:55 WBC 4.4 RBC 4.16 Hgb 12.1 Hct 36.1 MCV 86.7 MCH 29.0 MCHC 33.5 RDW 18.5 H Plt Count 224 D MPV 8.4 Sodium 138 Potassium 3.4 L Chloride 103 Carbon Dioxide 23 Anion Gap 12 BUN 7.9 Creatinine 0.8 Est GFR (CKD-EPI)AfAm 93.53 Est GFR (CKD-EPI)NonAf 80.70 Random Glucose 98 Calcium 8.3 L Total Bilirubin 0.9 AST 43 H ALT 43 Alkaline Phosphatase 116 Total Protein 8.2 Albumin 3.9 POC Urine HCG, Qual Negative Syphilis Serology 09/30/19 11:55 WBC RBC Hgb Hct MCV MCH MCHC RDW Plt Count MPV Sodium Potassium Chloride Carbon Dioxide Anion Gap BUN Creatinine Est GFR (CKD-EPI)AfAm Est GFR (CKD-EPI)NonAf Random Glucose Calcium Total Bilirubin AST ALT Alkaline Phosphatase Total Protein Albumin POC Urine HCG, Qual Syphilis Serology Non-reactive Active Medications Generic Name Dose Route Start Last Admin Trade Name Freq PRN Reason Stop Dose Admin Acetaminophen 650 mg 09/30/19 11:36 Tylenol - PO Q6H PRN PAIN LEVEL 4 - 6 Acetaminophen 650 mg 09/30/19 11:36 Tylenol - PO Q6H PRN FEVER Al Hydroxide/Mg Hydroxide 30 ml 09/30/19 11:36 Mylanta Oral Suspension - PO Q6H PRN DYSPEPSIA Amlodipine Besylate 10 mg 09/30/19 11:45 10/01/19 10:34 Norvasc - PO 10 mg DAILY KARTHIK Administration Eucalyptus/Menthol/Phenol/Sorbitol 1 each 09/30/19 11:36 Cepastat Lozenge - MM 10/06/19 11:36 Q4H PRN SORE THROAT Hydrochlorothiazide 25 mg 09/30/19 11:45 10/01/19 10:35 Hctz - PO 25 mg DAILY KARTHIK Administration Hydroxyzine Pamoate 25 mg 09/30/19 14:00 10/01/19 10:35 Vistaril - PO 10/06/19 11:36 Not Given Q4HWA KARTHIK Lorazepam 1 mg 10/02/19 05:00 Ativan - PO 10/02/19 23:01 0500,1100,1700,2300 KARTHIK Lorazepam 1 mg 09/30/19 11:36 09/30/19 19:11 Ativan - PO 10/02/19 23:59 1 mg Q4H PRN Administration Symptoms of Withdrawal Lorazepam 2 mg 09/30/19 17:00 10/01/19 10:36 Ativan PO 10/01/19 23:01 2 mg 0500,1100,1700,2300 KARTHIK Administration Lorazepam 0.5 mg 10/03/19 05:00 Ativan - PO 10/03/19 23:01 Q6H KARTHIK Lorazepam 0.5 mg 10/03/19 00:00 Ativan - PO 10/04/19 00:00 Q4H PRN Symptoms of Withdrawal Lorazepam 0.5 mg 10/04/19 05:00 Ativan - PO 10/04/19 05:01 ONCE ONE Magnesium Citrate 300 ml 09/30/19 11:36 Citroma - PO Q48H PRN CONSTIPATION Magnesium Hydroxide 30 ml 09/30/19 11:36 Milk Of Magnesia - PO PRN PRN CONSTIPATION Melatonin 5 mg 09/30/19 22:00 09/30/19 22:28 Melatonin PO 5 mg HS KARTHIK Administration Methocarbamol 500 mg 09/30/19 11:36 Robaxin - PO 10/06/19 11:36 Q6H PRN MUSCLE SPASMS Ondansetron HCl 4 mg 09/30/19 11:36 Zofran Odt - SL 10/06/19 11:37 Q8H PRN Nausea/Vomiting Multivit/Folic Acid/Iron 1 tab 10/01/19 10:00 10/01/19 10:35 Vitamins (Sjr) - PO 1 tab DAILY KARTHIK Administration Thiamine HCl 100 mg 09/30/19 22:00 09/30/19 22:28 Vitamin B1 - PO 100 mg HS KARTHIK Administration Vital Signs Temperature 97.3 F L 10/01/19 08:50 Pulse Rate 90 10/01/19 08:50 Respiratory Rate 16 10/01/19 08:50 Blood Pressure 127/95 10/01/19 08:50 O2 Sat by Pulse Oximetry (%) 99 10/01/19 06:40 Assessment: 10/01/19 11:48 1. alcohol use disorder Plan: 1. Ativan protocol, projected completion on 10/03
[2019-10-01] MEDS: THIAMINE HCL 100 MG TABLET (FP) PO SCH (22:18)
[2019-10-01] MEDS: MELATONIN 5 MG TABLETS PO SCH (22:20)
[2019-10-02] MEDS: LORazepam 1 MG TABLET PO SCH ×2 (05:41→10:14)
[2019-10-02] MEDS: hydrOXYzine PAMOATE 25 MG CAPSULE (FP) PO SCH ×3 (05:42→13:42)
[2019-10-02] MEDS: HYDROCHLOROTHIAZIDE 25 MG TABLET (FP) PO SCH (10:14)
[2019-10-02] MEDS: PRENATAL VITAMINS W/ FOLIC ACID TABLET (FP) PO SCH (10:14)
[2019-10-02] MEDS: amLODIPine BESYLATE 10 MG TABLET (FP) PO SCH (10:14)
--- NOTE | 2019-10-02 13:07 | PN ---
S CIWA - CIWA Score Nausea/Vomitin-No Nausea/No Vomiting Muscle Tremors: None Anxiety: 2 Agitation: 0-Normal Activity Paroxysmal Sweats: No Perspiration Orientation: 0-Oriented Tacttile Disturbances: 0-None Auditory Disturbances: 0-None Visual Disturbances: 0-None Headache: 0-None Present CIWA-Ar Total Score: 2 BHS Progress Note (SOAP) Subjective: c/o mild withdrawal symptoms. Objective: 10/02/19 13:06 Vital Signs 10/02/19 10/02/19 06:52 09:29 Temperature 97.1 F L 97.1 F L Pulse Rate 79 18 L Respiratory 16 18 Rate Blood Pressure 141/91 139/98 O2 Sat by Pulse 96 96 Oximetry (%) Laboratory Last Values WBC 4.4 K/mm3 (4.0-10.0) 09/30/19 11:55 RBC 4.16 M/mm3 (3.60-5.2) 09/30/19 11:55 Hgb 12.1 GM/dL (10.7-15.3) 09/30/19 11:55 Hct 36.1 % (32.4-45.2) 09/30/19 11:55 MCV 86.7 fl (80-96) 09/30/19 11:55 MCH 29.0 pg (25.7-33.7) 09/30/19 11:55 MCHC 33.5 g/dl (32.0-36.0) 09/30/19 11:55 RDW 18.5 % (11.6-15.6) H 09/30/19 11:55 Plt Count 224 K/MM3 (134-434) D 09/30/19 11:55 MPV 8.4 fl (7.5-11.1) 09/30/19 11:55 Sodium 138 mmol/L (136-145) 09/30/19 11:55 Potassium 3.4 mmol/L (3.5-5.1) L 09/30/19 11:55 Chloride 103 mmol/L (98-107) 09/30/19 11:55 Carbon Dioxide 23 mmol/L (21-32) 09/30/19 11:55 Anion Gap 12 MMOL/L (8-16) 09/30/19 11:55 BUN 7.9 mg/dL (7-18) 09/30/19 11:55 Creatinine 0.8 mg/dL (0.55-1.3) 09/30/19 11:55 Est GFR (CKD-EPI)AfAm 93.53 09/30/19 11:55 Est GFR (CKD-EPI)NonAf 80.70 09/30/19 11:55 Random Glucose 98 mg/dL (74-106) 09/30/19 11:55 Calcium 8.3 mg/dL (8.5-10.1) L 09/30/19 11:55 Total Bilirubin 0.9 mg/dL (0.2-1) 09/30/19 11:55 AST 43 U/L (15-37) H 09/30/19 11:55 ALT 43 U/L (13-61) 09/30/19 11:55 Alkaline Phosphatase 116 U/L (45-117) 09/30/19 11:55 Total Protein 8.2 g/dl (6.4-8.2) 09/30/19 11:55 Albumin 3.9 g/dl (3.4-5.0) 09/30/19 11:55 POC Urine HCG, Qual Negative 09/30/19 10:58 Syphilis Serology Non-reactive (NONREACTIVE) 09/30/19 11:55 COVID-19 (RENNY) Not detected (Not Detected) 09/30/19 12:30 Labs noted. Assessment: 10/02/19 13:06 AOX3 and in no acute respiratory distress. Full ROM, ambulating in the unit. Mild Withdrawal symptoms. Plan: continue detox.
[2019-10-02 13:34] VITALS: BP 127/90; PULSE 91; TEMP 97.6
--- NOTE | 2019-10-02 15:16 | DS ---
[facility] Detox Discharge Summary Admission Date: 09/30/19 Discharge Date: 10/02/19 (Left AMA) - History Present History: Alcohol Dependence Additional Comments: Pt left AMA. Pt did not complete the detox protocol. Pt requested to leave AMA after she was moved to another room. Pt states, "i can't be in that room, i'm leaving". An attempt to let pt stay and complete the detox protocol failed. Pt is encouraged to follow-up with an outpatient/Rehab CD program and also to follow-up with her PMD but was adamant. Pt is alert and oriented x3 and in no acute respiratory distress, Full ROM, and ambulatory. Pertinent Past History: h/o HTN and alcohol use disorder. - Physical Exam Results Vital Signs: Vital Signs Temperature 97.6 F 10/02/19 12:50 Pulse Rate 91 H 10/02/19 12:50 Respiratory Rate 18 10/02/19 12:50 Blood Pressure 127/90 10/02/19 12:50 O2 Sat by Pulse Oximetry (%) 96 10/02/19 12:50 Vital Signs 10/02/19 10/02/19 09:29 12:50 Temperature 97.1 F L 97.6 F Pulse Rate 18 L 91 H Respiratory 18 18 Rate Blood Pressure 139/98 127/90 O2 Sat by Pulse 96 96 Oximetry (%) Laboratory Last Values WBC 4.4 K/mm3 (4.0-10.0) 09/30/19 11:55 RBC 4.16 M/mm3 (3.60-5.2) 09/30/19 11:55 Hgb 12.1 GM/dL (10.7-15.3) 09/30/19 11:55 Hct 36.1 % (32.4-45.2) 09/30/19 11:55 MCV 86.7 fl (80-96) 09/30/19 11:55 MCH 29.0 pg (25.7-33.7) 09/30/19 11:55 MCHC 33.5 g/dl (32.0-36.0) 09/30/19 11:55 RDW 18.5 % (11.6-15.6) H 09/30/19 11:55 Plt Count 224 K/MM3 (134-434) D 09/30/19 11:55 MPV 8.4 fl (7.5-11.1) 09/30/19 11:55 Sodium 138 mmol/L (136-145) 09/30/19 11:55 Potassium 3.4 mmol/L (3.5-5.1) L 09/30/19 11:55 Chloride 103 mmol/L (98-107) 09/30/19 11:55 Carbon Dioxide 23 mmol/L (21-32) 09/30/19 11:55 Anion Gap 12 MMOL/L (8-16) 09/30/19 11:55 BUN 7.9 mg/dL (7-18) 09/30/19 11:55 Creatinine 0.8 mg/dL (0.55-1.3) 09/30/19 11:55 Est GFR (CKD-EPI)AfAm 93.53 09/30/19 11:55 Est GFR (CKD-EPI)NonAf 80.70 09/30/19 11:55 Random Glucose 98 mg/dL (74-106) 09/30/19 11:55 Calcium 8.3 mg/dL (8.5-10.1) L 09/30/19 11:55 Total Bilirubin 0.9 mg/dL (0.2-1) 09/30/19 11:55 AST 43 U/L (15-37) H 09/30/19 11:55 ALT 43 U/L (13-61) 09/30/19 11:55 Alkaline Phosphatase 116 U/L (45-117) 09/30/19 11:55 Total Protein 8.2 g/dl (6.4-8.2) 09/30/19 11:55 Albumin 3.9 g/dl (3.4-5.0) 09/30/19 11:55 POC Urine HCG, Qual Negative 09/30/19 10:58 Syphilis Serology Non-reactive (NONREACTIVE) 09/30/19 11:55 COVID-19 (RENNY) Not detected (Not Detected) 09/30/19 12:30 Labs noted. Pertinent Admission Physical Exam Findings: withdrawal symptoms. - Treatment Hospital Course: Detox Protocol Followed - Medication Discharge Medications: Ambulatory Orders Amlodipine Besylate [Norvasc -] 10 mg PO DAILY #30 tab 04/06/17 Hydrochlorothiazide [Hctz -] 25 mg PO DAILY #30 tablet 04/06/17 - Diagnosis (1) Alcohol dependence with uncomplicated withdrawal Status: Acute (2) Essential hypertension Status: Chronic - AMA Did Patient Leave Against Medical Advice: Yes
[2019-10-03] MEDS ORDERED: LORazepam 0.5 MG TABLET PO PRN
[2019-10-03] MEDS ORDERED: LORazepam 0.5 MG TABLET PO SCH (05:00)
[2019-10-04] MEDS ORDERED: LORazepam 0.5 MG TABLET PO ONE (05:00)
== END 2019-10-02 14:18 | disposition left against medical advice (07) | DRG 770 ==
LOC: YASAS 09:58 → Y3N 12:10
PROVIDERS: ADMIT Allergy & Immunology; ATTEND Allergy & Immunology
PROC: HZ2ZZZZ Detoxification Services for Substance Abuse Treatment (ICD-10-PCS; principal; 2019-09-30)
DX: F10.230 Alcohol dependence with withdrawal, uncomplicated (principal); I10 Essential (primary) hypertension
CPT/HCPCS: 36415; 80053; 81025; 85027; 86780; J0735; U0003

== ENCOUNTER 2019-11-02 12:48 | Inpatient (IN) | payer OTHER, BC ==
--- NOTE | 2019-11-02 13:06 | BHS.RME ---
Substance Use & Tx History - Substance Use History Alcohol Substance amount: 1-2 pints vodka Frequency of use: Daily Substance route: Oral Date of Last Use: 11/02/19 - Last Treatment Date of last treatment: 09/29-10/02/19 left ama Treatment type: Substance Use Disorder (YESENIA) Where was last treatment: Detox Physical/Psych/Mental Status - Behavior General Behavior: Increased activity (restlessness, agitation) Eye Contact: Normal - Cooperativeness Cooperativeness: Cooperative - Thinking Thought Processes: Tight, Logical, Goal Directed - Physical Health Problems Is patient presently having any pain?: No Does patient presently have any injuries (include location): No Does patient currently have a fever: No Is patient : No CIWA Nausea/Vomitin-Mild Nausea/No Vomiting Muscle Tremors: 1-None Visible, but [place] Anxiety: 1-Mildly Anxious Agitation: 1-Slight > Activity Paroxysmal Sweats: 1-Minimal Palms Moist Orientation: 2-Disoriented Date<2 days Tacttile Disturbances: 0-None Auditory Disturbances: 0-None Visual Disturbances: 0-None Headache: 0-None Present (not yet in full withdrawals as she drank right before coming in for admission and ALONZO=0.334) CIWA-Ar Total Score: 7
--- NOTE | 2019-11-02 14:26 | HP ---
CIWA Score Nausea/Vomitin-Mild Nausea/No Vomiting Muscle Tremors: 1-None Visible, but [place] Anxiety: 1-Mildly Anxious Agitation: 1-Slight > Activity Paroxysmal Sweats: 1-Minimal Palms Moist Orientation: 2-Disoriented Date<2 days Tacttile Disturbances: 0-None Auditory Disturbances: 0-None Visual Disturbances: 0-None Headache: 0-None Present (not yet in full withdrawals as she drank right before coming in for admission and ALONZO=0.334) CIWA-Ar Total Score: 7 - Admission Criteria [facility] Guidelines: Admission for Medically Managed Detox: Requires at least one of the followin. CIWA greater than 12 2. Seizures within the past 24 hours 3. Delirium tremens within the past 24 hours 4. Hallucinations within the past 24 hours 5. Acute intervention needed for co occurring medical disorder 6. Acute intervention needed for co occurring psychiatric disorder 7. Severe withdrawal that cannot be handled at a lower level of care (continued vomiting, continued diarrhea, abnormal vital signs) requiring intravenous medication and/or fluids 8. Admitting History and Physical - Smoking History Smoking history: Never smoked Have you smoked in the past 12 months: No - Alcohol/Substance Use Hx Alcohol Use: Yes Admission ROS [facility] - [facility] Chief Complaint: alcohol detox Allergies/Adverse Reactions: Allergies Allergy/AdvReac Type Severity Reaction Status Date / Time ibuprofen [From Motrin] Allergy Intermediate Swelling Verified 11/02/19 15:27 latex Allergy Intermediate Itching Verified 11/02/19 15:27 History of Present Illness: Patient is a 58 y/o female with a history history of HTN who presents for alcohol detox. Patient started drinking alcohol at 2015. Patient drinks every day. Drinks 1 pint of vodka every day. Patient endorses eyeopener. Patient has blacked out from drinking. Patient did have a seizure from drinking in 2019. Patient has attempted rehab/detox 30 times. patient was able to be sober for the year of 2016 when she took vivitrol. 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 - Review of Systems Constitutional: Other (denies fever or chills) EENT: denies: Blurred Vision, Tinnitus Respiratory: denies: Cough, Shortness of Breath, Wheezing Cardiac: denies: Chest Pain GI: denies: Constipated, Diarrhea, Nausea, Vomiting : denies: Dysuria Musculoskeletal: denies: Muscle Pain Neuro: denies: Headache, Numbness, Tremors Hematology: denies: Anemia Psychiatric: denies: Anxious, Depressed Patient History - Patient Medical History Hx Anemia: No Hx Asthma: Yes (seasonal) Hx Chronic Obstructive Pulmonary Disease (COPD): No Hx Cancer: No Hx Cardiac Disorders: No Hx Congestive Heart Failure: No Hx Hypertension: Yes Hx Hypercholesterolemia: No Hx Pacemaker: No HX Cerebrovascular Accident: No Hx Seizures: No Hx Dementia: No Hx Diabetes: No Hx Gastrointestinal Disorders: No Hx Liver Disease: No Hx Genitourinary Disorders: No Hx Sexually Transmitted Disorders: No Hx Renal Disease (ESRD): No Hx Thyroid Disease: No Hx Human Immunodeficiency Virus (HIV): No Hx Hepatitis C: No Hx Depression: Yes Hx Suicide Attempt: No Hx Bipolar Disorder: No Hx Schizophrenia: No - Patient Surgical History Past Surgical History: Yes Hx Neurologic Surgery: No Hx Cataract Extraction: No Hx Cardiac Surgery: No Hx Lung Surgery: No Hx Breast Surgery: No Hx Breast Biopsy: No Hx Abdominal Surgery: No Hx Appendectomy: No Hx Cholecystectomy: No Hx Genitourinary Surgery: No Hx Section: Yes (06/2000) Hx Orthopedic Surgery: Yes (left ankle in [facility]) Anesthesia Reaction: No - PPD History Date: 10/02/19 Results: 0 MM - Smoking Cessation Smoking history: Never smoked Have you smoked in the past 12 months: No Hx Chewing Tobacco Use: No - Substance & Tx. History Hx Alcohol Use: Yes Hx Substance Use: No - Substances abused Alcohol Substance route: Oral Frequency: Daily Amount used: 1-2 pints vodka Age of first use: 54 Date of last use: 11/02/19 Admission Physical Exam BHS - Physical General Appearance: Yes: Within Normal Limits, Appropriately Dressed HEENTM: Yes: Normocephalic Respiratory: Yes: Normal Breath Sounds, No Respiratory Distress, No Accessory Muscle Use Neck: Yes: Within Normal Limits Cardiology: Yes: Within Normal Limits, Regular Rhythm, Regular Rate Abdominal: Yes: Normal Bowel Sounds, Flat Back: Yes: Normal Inspection Musculoskeletal: Yes: full range of Motion Extremities: Yes: Normal Range of Motion, Non-Tender Neurological: Yes: Fully Oriented, Normal Mood/Affect, Normal Response Integumentary: Yes: Normal Color, Warm - Diagnostic (1) Hypertension Current Visit: Yes Status: Acute (2) Alcohol dependence with uncomplicated withdrawal Current Visit: No Status: Acute (3) Obesity Current Visit: No Status: Chronic Qualifiers: Obesity classification: adult class 2 (BMI 35 - 39.9) Cleared for Admission S - Detox or Rehab [facility] Level of Care: Medically Managed Detox Regimen/Protocol: Librium Breathalyzer - Breathalyzer Breathalyzer: 0.135 Vital Signs - Vital Signs Vital signs refused: No Temperature: 97 F Temperature source: Oral Pulse Rate: 83 Respiratory Rate: 12 Blood Pressure: 119/87 - Height Height: 5 ft 7 in - Weight Weight: 120.656 kg - BMI Body Mass Index (BMI): 41.6 Urine Drug Screen - Test Device Lot number: [id number] Expiration date: 09/27/21 - Control Is test valid?: Yes - Results Drug screen NEGATIVE: No Urine drug screen results: BAR-Barbiturates, BZO-Benzodiazepines Inpatient Rehab Admission - Rehab Decision to Admit Inpatient rehab admission?: No
[2019-11-02 14:31] VITALS: BMI 41.6
[2019-11-02] MEDS ORDERED: MENTHOL/PHENOL 1 EACH UD MM PRN (14:31)
[2019-11-02] MEDS ORDERED: ONDANSETRON *ODT* 4 MG TABLET SL PRN (14:31)
[2019-11-02] MEDS ORDERED: chlordiazePOXIDE HCL 25 MG CAPSULE PO PRN (14:31)
[2019-11-02] MEDS ORDERED: MAGNESIUM HYDROX 2400MG/30ML ORAL SUSPENSION 30 ML CUP PO PRN (14:31)
[2019-11-02] MEDS ORDERED: MAG HYDROX/AL HYDROX/SIMETH 30 ML UNIT-DOSE CUP PO PRN (14:31)
[2019-11-02] MEDS ORDERED: ACETAMINOPHEN 325 MG TABLET (FP) PO PRN ×2 (14:31)
[2019-11-02] MEDS ORDERED: MAGNESIUM CITRATE 300 ML BOTTLE PO PRN (14:31)
[2019-11-02] MEDS ORDERED: LORazepam 1 MG TABLET PO PRN (14:38)
--- NOTE | 2019-11-02 16:05 | PN ---
Teaching Attending Note Name of Resident: Ariela Olmedo ATTENDING PHYSICIAN STATEMENT I saw and evaluated the patient. I reviewed the resident's note and discussed the case with the resident. I agree with the resident's findings and plan as documented. SUBJECTIVE: OBJECTIVE: ASSESSMENT AND PLAN: 1. Alcohol use disorder Plan 1. Ativan protocol
[2019-11-02] MEDS: HYDROCHLOROTHIAZIDE 25 MG TABLET (FP) PO SCH (16:53)
[2019-11-02] MEDS: amLODIPine BESYLATE 10 MG TABLET (FP) PO SCH (16:53)
[2019-11-02] MEDS: PRENATAL VITAMINS W/ FOLIC ACID TABLET (FP) PO SCH (16:53)
[2019-11-02] MEDS: LORazepam 2 MG TABLET PO SCH ×2 (16:53→22:16)
[2019-11-02] MEDS ORDERED: chlordiazePOXIDE HCL 25 MG CAPSULE PO SCH (17:00)
[2019-11-02] MEDS: hydrOXYzine PAMOATE 25 MG CAPSULE (FP) PO SCH ×2 (17:20→22:16)
[2019-11-02 17:21] LABS: HEMATOCRIT 33.1 % (32.4-45.2); MCH 29.3 pg (25.7-33.7); MCHC 33.2 g/dl (32.0-36.0); MEAN CELL VOLUME 88.3 fl (80-96); MEAN PLT VOLUME 8.7 fl (7.5-11.1); PLATELET COUNT 126 K/MM3 (134-434); RBC 3.74 M/mm3 (3.60-5.2); RDW 18.2 % (11.6-15.6); WHITE BLOOD COUNT 4.2 K/mm3 (4.0-10.0)
[2019-11-02 17:32] LABS: ALBUMIN 4.1 g/dl (3.4-5.0); BILIRUBIN,TOTAL 0.4 mg/dL (0.2-1); BLOOD UREA NITROGEN 10.6 mg/dL (7-18); CALCIUM 8.2 mg/dL (8.5-10.1); CREATININE 0.7 mg/dL (0.55-1.3); POTASSIUM 3.2 mmol/L (3.5-5.1); TOT PROT 8.2 g/dl (6.4-8.2)
[2019-11-02] MEDS: THIAMINE HCL 100 MG TABLET (FP) PO SCH (22:16)
[2019-11-02] MEDS: MELATONIN 5 MG TABLETS PO SCH (22:17)
[2019-11-02] MEDS: METHOCARBAMOL 500 MG TABLET PO PRN (23:16)
[2019-11-03] MEDS: hydrOXYzine PAMOATE 25 MG CAPSULE (FP) PO SCH ×3 (05:35→13:31)
[2019-11-03] MEDS: LORazepam 2 MG TABLET PO SCH ×4 (05:35→22:00)
[2019-11-03] MEDS: amLODIPine BESYLATE 10 MG TABLET (FP) PO SCH (10:13)
[2019-11-03] MEDS: HYDROCHLOROTHIAZIDE 25 MG TABLET (FP) PO SCH (10:13)
[2019-11-03] MEDS: PRENATAL VITAMINS W/ FOLIC ACID TABLET (FP) PO SCH (10:16)
--- NOTE | 2019-11-03 11:23 | CONSULT ---
[facility] Psychiatric Consult - Data Date of interview: 11/03/19 Admission source: [facility] Identifying data: Patient is a 58 year old single black female, mother of one, domiciled,unemployed (on administrative leave), and is supported by unemployment benefits. This is one of multiple admissions for patient. Patient admitted to for alcohol dependence. Substance Abuse History: Smoking Cessation. Smoking history: Never smoked. Have you smoked in the past 12 months: No. Hx Chewing Tobacco Use: No. - Substance & Tx. History. Hx Alcohol Use: Yes. Hx Substance Use: No. - Substances abused. Alcohol. Substance route: Oral. Frequency: Daily. Amount used: 1-2 pints vodka. Age of first use: 54. Date of last use: 11/02/19 Medical History: Hypertension, section 06/2000 Psychiatric History: Patient denies history psychiatric hospitalization and suicide attempt. Patient states that she receives her vivitrol injections from Dr. Wheatley [facility] [place]. At present patient reports difficulty sleeping. Physical/Sexual Abuse/Trauma History: denies. Mental Status Exam - Mental Status Exam Alert and Oriented to: Time, Place, Person Cognitive Function: Good Patient Appearance: Well Groomed Mood: Hopeful Affect: Appropriate Patient Behavior: Cooperative Speech Pattern: Appropriate Voice Loudness: Normal Thought Process: Goal Oriented Thought Disorder: Not Present Hallucinations: Denies Suicidal Ideation: Denies Homicidal Ideation: Denies Insight/Judgement: Poor Sleep: Poorly Appetite: Fair Muscle strength/Tone: Normal Gait/Station: Normal Psychiatric Findings - Problem List ([place] 1, 2,3) (1) Alcohol dependence with uncomplicated withdrawal Current Visit: Yes Status: Acute (2) Alcohol-induced sleep disorder Current Visit: Yes Status: Acute - Initial Treatment Plan Initial Treatment Plan: Psychoeducation provided. Detoxification in progress. Will order Belsomra 10mg HS PRN. Benefits and side effects discussed. Verbal consent given.
[2019-11-03] MEDS: METHOCARBAMOL 500 MG TABLET PO PRN (13:30)
--- NOTE | 2019-11-03 13:58 | PN ---
S CIWA - CIWA Score Nausea/Vomitin-No Nausea/No Vomiting Muscle Tremors: 3 Anxiety: 3 Agitation: 4-Moderately Restless Paroxysmal Sweats: 3 Orientation: 0-Oriented Tacttile Disturbances: 0-None Auditory Disturbances: 0-None Visual Disturbances: 0-None Headache: 0-None Present CIWA-Ar Total Score: 13 BHS Progress Note (SOAP) Subjective: sweats shakes my eyes are sticky in the morning agitation interrupted sleep body aches nausea Objective: 11/03/19 13:56 Vital Signs Temperature 97.8 F 11/03/19 12:57 Pulse Rate 100 H 11/03/19 12:57 Respiratory Rate 18 11/03/19 12:57 Blood Pressure 148/88 11/03/19 12:57 O2 Sat by Pulse Oximetry (%) 100 11/03/19 12:57 Laboratory Tests 11/02/19 11/02/19 11/02/19 15:15 15:15 15:15 WBC 4.2 RBC 3.74 Hgb 11.0 Hct 33.1 MCV 88.3 MCH 29.3 MCHC 33.2 RDW 18.2 H Plt Count 126 L D MPV 8.7 Sodium 143 Potassium 3.2 L Chloride 105 Carbon Dioxide 28 Anion Gap 10 BUN 10.6 Creatinine 0.7 Est GFR (CKD-EPI)AfAm 109.91 Est GFR (CKD-EPI)NonAf 94.84 Random Glucose 105 Calcium 8.2 L Total Bilirubin 0.4 AST 164 H ALT 63 H Alkaline Phosphatase 121 H Total Protein 8.2 Albumin 4.1 Syphilis Serology Non-reactive labs noted low potassium 3.2 noted elevated ast/alt repeat labs aaox3 ambulating no acute distress Assessment: 11/03/19 13:57 withdrawals Plan: continue detox kdur 20meq x 3 days ordered repeat labs encourage water intake
[2019-11-03] MEDS ORDERED: ERYTHROMYCIN 0.5% OPHTHALMIC OINTMENT 3.5 GM TUBE OU SCH ×2 (15:30)
[2019-11-03] MEDS: POTASSIUM CHLORIDE TABS 20 MEQ TABLET.ER (FP) PO SCH (15:36)
[2019-11-03] MEDS: NAPHAZOLINE/PHENIRAMINE OPHTHALMIC 15 ML BOTTLE OU SCH ×3 (15:36→22:00)
[2019-11-03] MEDS: ERYTHROMYCIN 0.5% OPHTHALMIC OINTMENT 3.5 GM TUBE OU SCH (21:59)
[2019-11-03] MEDS: THIAMINE HCL 100 MG TABLET (FP) PO SCH (22:00)
[2019-11-03] MEDS: SUVOREXANT 10 MG TABLET PO PRN (22:01)
[2019-11-03] MEDS: MELATONIN 5 MG TABLETS PO SCH (22:04)
[2019-11-04] MEDS ORDERED: chlordiazePOXIDE HCL 25 MG CAPSULE PO SCH (05:00)
[2019-11-04] MEDS: LORazepam 1 MG TABLET PO SCH ×4 (06:09→22:10)
[2019-11-04] MEDS: HYDROCHLOROTHIAZIDE 25 MG TABLET (FP) PO SCH (10:04)
[2019-11-04] MEDS: POTASSIUM CHLORIDE TABS 20 MEQ TABLET.ER (FP) PO SCH (10:04)
[2019-11-04] MEDS: PRENATAL VITAMINS W/ FOLIC ACID TABLET (FP) PO SCH (10:05)
[2019-11-04] MEDS: amLODIPine BESYLATE 10 MG TABLET (FP) PO SCH (10:05)
[2019-11-04] MEDS: NAPHAZOLINE/PHENIRAMINE OPHTHALMIC 15 ML BOTTLE OU SCH ×4 (10:05→22:13)
--- NOTE | 2019-11-04 14:03 | PN ---
S CIWA - CIWA Score Nausea/Vomitin-No Nausea/No Vomiting Muscle Tremors: 3 Anxiety: 2 Agitation: 2 Paroxysmal Sweats: 2 Orientation: 0-Oriented Tacttile Disturbances: 0-None Auditory Disturbances: 0-None Visual Disturbances: 0-None Headache: 0-None Present CIWA-Ar Total Score: 9 BHS Progress Note (SOAP) Subjective: sweats feeling better anxiety my eyes are feeling better Objective: 11/04/19 14:02 Vital Signs Temperature 97.3 F L 11/04/19 09:51 Pulse Rate 104 H 11/04/19 09:51 Respiratory Rate 16 11/04/19 09:51 Blood Pressure 119/79 11/04/19 09:51 O2 Sat by Pulse Oximetry (%) 95 11/04/19 09:51 Laboratory Tests 11/02/19 11/02/19 11/02/19 15:15 15:15 15:15 WBC 4.2 RBC 3.74 Hgb 11.0 Hct 33.1 MCV 88.3 MCH 29.3 MCHC 33.2 RDW 18.2 H Plt Count 126 L D MPV 8.7 Sodium 143 Potassium 3.2 L Chloride 105 Carbon Dioxide 28 Anion Gap 10 BUN 10.6 Creatinine 0.7 Est GFR (CKD-EPI)AfAm 109.91 Est GFR (CKD-EPI)NonAf 94.84 Random Glucose 105 Calcium 8.2 L Total Bilirubin 0.4 AST 164 H ALT 63 H Alkaline Phosphatase 121 H Total Protein 8.2 Albumin 4.1 Syphilis Serology Non-reactive COVID-19 (RENNY) 11/02/19 15:30 WBC RBC Hgb Hct MCV MCH MCHC RDW Plt Count MPV Sodium Potassium Chloride Carbon Dioxide Anion Gap BUN Creatinine Est GFR (CKD-EPI)AfAm Est GFR (CKD-EPI)NonAf Random Glucose Calcium Total Bilirubin AST ALT Alkaline Phosphatase Total Protein Albumin Syphilis Serology COVID-19 (RENNY) Not detected labs noted ordered for repeat labs aaox3 ambulating no acute distress Assessment: 11/04/19 14:03 withdrawals Plan: continue detox
[2019-11-04] MEDS: THIAMINE HCL 100 MG TABLET (FP) PO SCH (22:10)
[2019-11-04] MEDS: MELATONIN 5 MG TABLETS PO SCH (22:11)
[2019-11-04] MEDS: ERYTHROMYCIN 0.5% OPHTHALMIC OINTMENT 3.5 GM TUBE OU SCH (22:13)
[2019-11-04] MEDS: SUVOREXANT 10 MG TABLET PO PRN (22:56)
[2019-11-05] MEDS ORDERED: LORazepam 0.5 MG TABLET PO PRN
[2019-11-05] MEDS ORDERED: chlordiazePOXIDE HCL 10 MG CAPSULE PO PRN
[2019-11-05] MEDS ORDERED: chlordiazePOXIDE HCL 10 MG CAPSULE PO SCH (05:00)
[2019-11-05] MEDS: LORazepam 0.5 MG TABLET PO SCH ×4 (05:57→22:10)
[2019-11-05] MEDS: POTASSIUM CHLORIDE TABS 20 MEQ TABLET.ER (FP) PO SCH (10:34)
[2019-11-05] MEDS: amLODIPine BESYLATE 10 MG TABLET (FP) PO SCH (10:34)
[2019-11-05] MEDS: HYDROCHLOROTHIAZIDE 25 MG TABLET (FP) PO SCH (10:35)
[2019-11-05] MEDS: NAPHAZOLINE/PHENIRAMINE OPHTHALMIC 15 ML BOTTLE OU SCH ×4 (10:35→22:12)
[2019-11-05] MEDS: PRENATAL VITAMINS W/ FOLIC ACID TABLET (FP) PO SCH (10:35)
--- NOTE | 2019-11-05 11:06 | PN ---
[facility] CIWA - CIWA Score Nausea/Vomitin-No Nausea/No Vomiting Muscle Tremors: 1-None Visible, but [place] Anxiety: 1-Mildly Anxious Agitation: 1-Slight > Activity Paroxysmal Sweats: 1-Minimal Palms Moist Orientation: 0-Oriented Tacttile Disturbances: 0-None Auditory Disturbances: 0-None Visual Disturbances: 0-None Headache: 0-None Present CIWA-Ar Total Score: 4 BHS Progress Note (SOAP) Subjective: sweats anxiety Objective: 11/05/19 11:07 Vital Signs Temperature 97.3 F L 11/05/19 05:42 Pulse Rate 95 H 11/05/19 05:42 Respiratory Rate 16 11/05/19 05:42 Blood Pressure 126/79 11/05/19 05:42 O2 Sat by Pulse Oximetry (%) 96 11/05/19 05:42 aaox3 ambulating no acute distress Assessment: 11/05/19 11:07 withdrawal sx Plan: continue detox d/c tomorrow
[2019-11-05 15:04] LABS: ALBUMIN 4.2 g/dl (3.4-5.0); BILIRUBIN,TOTAL 1.2 mg/dL (0.2-1); BLOOD UREA NITROGEN 15.1 mg/dL (7-18); CALCIUM 9.3 mg/dL (8.5-10.1); CREATININE 1.6 mg/dL (0.55-1.3); POTASSIUM 3.4 mmol/L (3.5-5.1); TOT PROT 8.4 g/dl (6.4-8.2)
[2019-11-05] MEDS: MELATONIN 5 MG TABLETS PO SCH (22:10)
[2019-11-05] MEDS: THIAMINE HCL 100 MG TABLET (FP) PO SCH (22:10)
[2019-11-05] MEDS: ERYTHROMYCIN 0.5% OPHTHALMIC OINTMENT 3.5 GM TUBE OU SCH (22:12)
[2019-11-06] MEDS ORDERED: LORazepam 0.5 MG TABLET PO ONE (05:00)
[2019-11-06] MEDS ORDERED: chlordiazePOXIDE HCL 10 MG CAPSULE PO SCH (05:00)
[2019-11-06] MEDS: NAPHAZOLINE/PHENIRAMINE OPHTHALMIC 15 ML BOTTLE OU SCH (09:53)
[2019-11-06] MEDS: PRENATAL VITAMINS W/ FOLIC ACID TABLET (FP) PO SCH (09:53)
[2019-11-06] MEDS: amLODIPine BESYLATE 10 MG TABLET (FP) PO SCH (09:53)
[2019-11-06] MEDS: POTASSIUM CHLORIDE TABS 20 MEQ TABLET.ER (FP) PO SCH (09:53)
[2019-11-06] MEDS: HYDROCHLOROTHIAZIDE 25 MG TABLET (FP) PO SCH (09:53)
[2019-11-06 11:35] VITALS: BP 129/103; PULSE 118; TEMP 97.1
--- NOTE | 2019-11-06 18:45 | DS ---
[facility] Detox Discharge Summary Admission Date: 11/02/19 Discharge Date: 11/06/19 - History Present History: Alcohol Dependence Additional Comments: Patient going to the [facility] [place] ([place], [place]) Outpatient Program for Aftercare. Patient advised to follow-up with [facility] after Discharge from Detox for general medical assessment and for low K level and abnormal renal labs noted on detox admission and repeat laboratory assessment. Patient verbalized understanding of recommendation. Final Dose of K-Dur, 20 MEQ PO given to Patient prior to leaving Detox Unit. Copies of results of all labs drawn while admitted for detox given to patient at time of discharge from detox unit. Patient declined offer of Medication Prescription for home medication at time of Discharge from Detox, noting that he currently has adequate supplies of all prescribed home medications at home. Pertinent Past History: Asthma, Hypertension, Depression. - Physical Exam Results Vital Signs: Vital Signs Temperature 97.1 F L 11/06/19 08:30 Pulse Rate 118 H 11/06/19 08:30 Respiratory Rate 20 11/06/19 08:30 Blood Pressure 129/103 H 11/06/19 08:30 O2 Sat by Pulse Oximetry (%) 99 11/06/19 05:43 Pertinent Admission Physical Exam Findings: WITHDRAWAL SYMPTOMS. Laboratory Tests 11/02/19 11/02/19 11/02/19 15:15 15:15 15:15 WBC 4.2 RBC 3.74 Hgb 11.0 Hct 33.1 MCV 88.3 MCH 29.3 MCHC 33.2 RDW 18.2 H Plt Count 126 L D MPV 8.7 Sodium 143 Potassium 3.2 L Chloride 105 Carbon Dioxide 28 Anion Gap 10 BUN 10.6 Creatinine 0.7 Est GFR (CKD-EPI)AfAm 109.91 Est GFR (CKD-EPI)NonAf 94.84 Random Glucose 105 Calcium 8.2 L Total Bilirubin 0.4 AST 164 H ALT 63 H Alkaline Phosphatase 121 H Total Protein 8.2 Albumin 4.1 Syphilis Serology Non-reactive COVID-19 (RENNY) 11/02/19 11/05/19 15:30 08:30 WBC RBC Hgb Hct MCV MCH MCHC RDW Plt Count MPV Sodium 134 L Potassium 3.4 L Chloride 95 L Carbon Dioxide 31 Anion Gap 8 BUN 15.1 Creatinine 1.6 H Est GFR (CKD-EPI)AfAm 40.46 Est GFR (CKD-EPI)NonAf 34.91 Random Glucose 98 Calcium 9.3 Total Bilirubin 1.2 H AST 78 H ALT 48 Alkaline Phosphatase 117 Total Protein 8.4 H Albumin 4.2 Syphilis Serology COVID-19 (RENNY) Not detected Lab results noted. - Treatment Hospital Course: Detox Protocol Followed, Detoxed Safely, Responded well, Discharged Condition Good Patient has Accepted a Rehab Referral to: [facility] [place] [facility] - Medication Discharge Medications: Ambulatory Orders Amlodipine Besylate [Norvasc -] 10 mg PO DAILY #30 tab 04/06/17 Hydrochlorothiazide [Hctz -] 25 mg PO DAILY #30 tablet 04/06/17 - Diagnosis (1) Alcohol dependence with uncomplicated withdrawal Status: Acute (2) Hypertension Status: Acute Qualifiers: Hypertension type: unspecified Qualified Code(s): I10 - Essential (primary) hypertension (3) Obesity Status: Chronic Qualifiers: Obesity type: unspecified obesity type Obesity classification: adult class 2 (BMI 35 - 39.9) Serious obesity comorbidity presence: unspecified whether serious comorbidity present Body mass index: unspecified BMI Qualified Code(s): E66.9 - Obesity, unspecified (4) Alcohol-induced sleep disorder Status: Acute - AMA Did Patient Leave Against Medical Advice: No
[2019-11-07] MEDS ORDERED: chlordiazePOXIDE HCL 10 MG CAPSULE PO ONE (05:00)
== END 2019-11-06 09:55 | disposition home or self-care (01) | DRG 775 ==
LOC: YASAS 12:48 → Y6N 15:21
PROVIDERS: ADMIT Allergy & Immunology; ATTEND Allergy & Immunology
PROC: HZ2ZZZZ Detoxification Services for Substance Abuse Treatment (ICD-10-PCS; principal; 2019-11-02)
DX: F10.230 Alcohol dependence with withdrawal, uncomplicated (principal); F10.282 Alcohol dependence with alcohol-induced sleep disorder; F10.220 Alcohol dependence with intoxication, uncomplicated; F32.9 Major depressive disorder, single episode, unspecified; I10 Essential (primary) hypertension; J45.998 Other asthma; E66.01 Morbid (severe) obesity due to excess calories; Z68.41 Body mass index [BMI] 40.0-44.9, adult; Z91.048 Other nonmedicinal substance allergy status; Z88.6 Allergy status to analgesic agent
CPT/HCPCS: 36415; 80053; 85027; 86780; Q0162; U0003

== ENCOUNTER 2019-12-09 11:04 | Inpatient (IN) | payer OTHER, BC ==
--- OUTSIDE RECORDS SUMMARY | 2019-12-09 11:13 | XMS ---
:1960 Author Organization [facility] Support Name Relationship Address Phone [facility] Unavailable [address] [place] [address] UE Unavailable Unavailable Unavailable PETER DARLING [place] [address] PETER DARLING [place] [address] [place] [address] Re-disclosure Warning The records that you are about to access may contain information from federally- assisted alcohol or drug abuse programs. If such information is present, then the following federally mandated warning applies: This information has been disclosed to you from records protected by federal confidentiality rules (42 CFR part 2). The federal rules prohibit you from making any further disclosure of this information unless further disclosure is expressly permitted by the written consent of the person to whom it pertains or as otherwise permitted by 42 CFR part 2. A general authorization for the release of medical or other information is NOT sufficient for this purpose. The Federal rules restrict any use of the information to criminally investigate or prosecute any alcohol or drug abuse patient.The records that you are about to access may contain highly sensitive health information, the redisclosure of which is protected by Article 27-F of the [facility] Public Health law. If you continue you may haveaccess to information: Regarding HIV / AIDS; Provided by facilities licensed or operated by the [facility] Office of Mental Health; or Provided by the [facility] Office for People With Developmental Disabilities. If such information is present, then the following [facility] mandated warning applies: This information has been disclosed to you from confidential records which are protected by state law. State law prohibits you from making any further disclosure of this information without the specific written consent of the person to whom it pertains, or as otherwise permitted by law. Any unauthorized further disclosure in violation of state law may result in a fine or nursing home sentence or both. A general authorization for the release of medical or other information is NOT sufficient authorization for further disclosure. Insurance Providers Payer name Policy type Policy ID Covered Covered democrat's Policy P michael / Coverage democrat ID relationship to [employer] Inf ormation type aguayo [employer] BS [id number] SP [id number] HEALTHPLUS VALUE [id number] SP [id number] OPTIONS-BMP/GH I GHI PPO [id number] SP [id number] VALUE [id number] SP [id number] OPTIONS-BMP/GH I Results ID Date Data Source [id number] 11/02/2019 03:30:00 PM EDT [facility] Name Value Range Interpretation Description Data Sup porting Code Source(s) Document(s ) SARS [facility] coronavirus 2 RNA This lab was ordered by [facility] Bill Inter and reported by [facility]. ID Date Data Source [id number] 09/30/2019 12:30:00 PM EDT [facility] Name Value Range Interpretation Description Data Sup porting Code Source(s) Document(s ) SARS [facility] coronavirus 2 RNA This lab was ordered by [facility] Bill [facility] and reported by [facility]. ID Date Data Source [id number] 09/15/2019 05:00:00 AM EDT [facility] Name Value Range Interpretation Code Description Data Rakel rce(s) Supporting Document(s ) SARS-CoV-2 [facility] RNA Resp Ql RENNY+probe This lab was ordered by Stephan and toy erazo by [facility]. ID Date Data Source [id number] 09/05/2019 11:33:00 PM EDT [facility] Name Value Range Interpretation Code Description Data Rakel rce(s) Supporting Document(s ) SARS-CoV-2 [facility] RNA Resp Ql RENNY+probe This lab was ordered by Alayna erazo by [facility]. ID Date Data Source [id number] 06/25/2019 11:19:00 AM EDT [facility] Name Value Range Interpretation Code Description Data Rakel rce(s) Supporting Document(s ) COV2 [facility] This lab was ordered by [facility] 146 and reported by [facility]. Procedure
--- NOTE | 2019-12-09 12:23 | BHS.RME ---
2019 N Coronavirus Screen - COVID-19 Screening Questions Dx of COVID-19 or had a positive test in the last 4 weeks?: No Contact with known/suspected COVID patient in last 14 days?: No Any of these symptoms or contact with someone who has?: None Traveled domestically/internationally in the last 14 days?: No Screen score: 0 Screen result: Further Evaluation Substance Use & Tx History - Substance Use History Alcohol Substance amount: 1-2 pints vodka Frequency of use: Daily Substance route: Oral Date of Last Use: 12/08/19 (started age age 55) - Last Treatment Date of last treatment: 11/01-11/06/19 Treatment type: Substance Use Disorder (YESENIA) Where was last treatment: Detox Physical/Psych/Mental Status - Behavior General Behavior: Increased activity (restlessness, agitation) Eye Contact: Normal - Cooperativeness Cooperativeness: Cooperative - Thinking Thought Processes: Tight, Logical, Goal Directed - Physical Health Problems Is patient presently having any pain?: No Does patient presently have any injuries (include location): No Does patient currently have a fever: No Is patient : No CIWA Nausea/Vomitin Muscle Tremors: 3 Anxiety: 3 Agitation: 3 Paroxysmal Sweats: 1-Minimal Palms Moist Orientation: 1-Uncertain about Date Tacttile Disturbances: 0-None Auditory Disturbances: 0-None Visual Disturbances: 0-None Headache: 1-Very Mild CIWA-Ar Total Score: 15
--- NOTE | 2019-12-09 12:57 | HP ---
CIWA Score Nausea/Vomitin Muscle Tremors: 3 Anxiety: 3 Agitation: 3 Paroxysmal Sweats: 1-Minimal Palms Moist Orientation: 1-Uncertain about Date Tacttile Disturbances: 0-None Auditory Disturbances: 0-None Visual Disturbances: 0-None Headache: 1-Very Mild CIWA-Ar Total Score: 15 - Admission Criteria [facility] Guidelines: Admission for Medically Managed Detox: Requires at least one of the followin. CIWA greater than 12 2. Seizures within the past 24 hours 3. Delirium tremens within the past 24 hours 4. Hallucinations within the past 24 hours 5. Acute intervention needed for co occurring medical disorder 6. Acute intervention needed for co occurring psychiatric disorder 7. Severe withdrawal that cannot be handled at a lower level of care (continued vomiting, continued diarrhea, abnormal vital signs) requiring intravenous medication and/or fluids 8. Admitting History and Physical - Admission Chief Complaint: Ms. Langley is a 59 yo woman who presents to [facility] stating "I want to beat alcohol abuse, I don't want to drink anymore". She requests admission to detox. History of Present Illness: Ms. Langley is a 59 yo woman who presents to [facility] stating "I want to beat alcohol abuse, I don't want to drink anymore". She requests admission to detox. She was last here between Nov 01 and Nov 06, 2019. She completed detox. She notes a trigger to relapse: son away at college. She relapsed to drinking on November 30. PMH: HTN, heart murmur, seasonal asthma winter/spring PSH: C section, left ankle frature with plates/screws Psych: none SOC: lives in [facility] Legal: none Substance Use History Alcohol Substance amount: 1-2 pints vodka Frequency of use: Daily Substance route: Oral Date of Last Use: 12/08/19 (started age age 55) No seizures Yes blackouts Admits to eye openers Nicotine: never - Last Treatment Date of last treatment: 11/01-11/06/19 Treatment type: Substance Use Disorder (YESENIA) Where was last treatment: Detox ALONZO 0.216 VS: 117/76, 73, 20, 97.8. Sat 97% UDS: all neg History Source: Patient Limitations to Obtaining History: No Limitations - Smoking History Smoking history: Never smoked Have you smoked in the past 12 months: No - Alcohol/Substance Use Hx Alcohol Use: Yes Admission [facility] Allergies/Adverse Reactions: Allergies Allergy/AdvReac Type Severity Reaction Status Date / Time ibuprofen [From Motrin] Allergy Intermediate Swelling Verified 11/02/19 15:27 latex Allergy Intermediate Itching Verified 11/02/19 15:27 Exam Limitations: No Limitations - Ebola screening Have you traveled outside of the country in the last 21 days: No Have you been sick,other than usual withdrawal symptoms: No Do you have a fever: No - Review of Systems Constitutional: No Symptoms Reported EENT: reports: Blurred Vision (glasses, with her), Other (hx of thyroid nodules) Respiratory: reports: No Symptoms reported Cardiac: reports: No Symptoms Reported GI: reports: Diarrhea, Nausea, Vomiting : reports: No Symptoms Reported Musculoskeletal: reports: Other (aches all over, chronic ankle swelling) Integumentary: reports: No Symptoms Reported Neuro: reports: No Symptoms reported Endocrine: reports: No Symptoms Reported Hematology: reports: No Symptoms Reported Psychiatric: reports: No Sypmtoms Reported Patient History - Patient Medical History Hx Anemia: No Hx Asthma: Yes (seasonal) Hx Chronic Obstructive Pulmonary Disease (COPD): No Hx Cancer: No Hx Cardiac Disorders: No Hx Congestive Heart Failure: No Hx Hypertension: Yes Hx Hypercholesterolemia: No Hx Pacemaker: No HX Cerebrovascular Accident: No Hx Seizures: No Hx Dementia: No Hx Diabetes: No Hx Gastrointestinal Disorders: No Hx Liver Disease: No Hx Genitourinary Disorders: No Hx Sexually Transmitted Disorders: No Hx Renal Disease (ESRD): No Hx Thyroid Disease: No Hx Human Immunodeficiency Virus (HIV): No Hx Hepatitis C: No Hx Depression: Yes Hx Suicide Attempt: No Hx Bipolar Disorder: No Hx Schizophrenia: No - Patient Surgical History Past Surgical History: Yes Hx Neurologic Surgery: No Hx Cataract Extraction: No Hx Cardiac Surgery: No Hx Lung Surgery: No Hx Breast Surgery: No Hx Breast Biopsy: No Hx Abdominal Surgery: No Hx Appendectomy: No Hx Cholecystectomy: No Hx Genitourinary Surgery: No Hx Section: Yes (06/2000) Hx Orthopedic Surgery: Yes (left ankle in [facility]) Anesthesia Reaction: No - PPD History Date: 10/02/19 Results: 0 MM - Smoking Cessation Smoking history: Never smoked Have you smoked in the past 12 months: No Hx Chewing Tobacco Use: No Initiated information on smoking cessation: No Admission Physical Exam [facility] - Physical General Appearance: Yes: Nourished, Appropriately Dressed, Intoxicated HEENTM: Yes: EOMI, Hearing grossly Normal, Normocephalic, Normal Voice Respiratory: Yes: Lungs Clear, No Respiratory Distress, No Accessory Muscle Use Neck: Yes: Within Normal Limits, Supple Breast: Yes: Breast Exam Deferred Cardiology: Yes: Regular Rhythm, Regular Rate Abdominal: Yes: Normal Bowel Sounds, Soft, Protuberent Back: Yes: Normal Inspection Musculoskeletal: Yes: full range of Motion Extremities: Yes: Normal Inspection, Non-Tender Neurological: Yes: Alert, Normal Response Integumentary: Yes: Normal Color, Dry, Warm - Diagnostic (1) Alcohol dependence with uncomplicated withdrawal Current Visit: Yes Status: Acute (2) Hypertension Current Visit: Yes Status: Chronic Qualifiers: Hypertension type: unspecified Qualified Code(s): I10 - Essential (primary) hypertension Cleared for Admission [facility] - Detox or Rehab [facility] Level of Care: Medically Managed Detox Regimen/Protocol: Ativan Breathalyzer - Breathalyzer Breathalyzer: 0.135 Urine Drug Screen - Test Device Lot number: [id number] Expiration date: 09/27/21 - Control Is test valid?: Yes - Results Drug screen NEGATIVE: Yes Inpatient Rehab Admission - Rehab Decision to Admit Inpatient rehab admission?: No
[2019-12-09 13:01] VITALS: BMI 40.9
[2019-12-09] MEDS ORDERED: ACETAMINOPHEN 325 MG TABLET (FP) PO PRN ×2 (13:03)
[2019-12-09] MEDS ORDERED: MAGNESIUM CITRATE 300 ML BOTTLE PO PRN (13:03)
[2019-12-09] MEDS ORDERED: NICOTINE POLACRILEX 2 MG GUM BUC PRN (13:03)
[2019-12-09] MEDS ORDERED: MAGNESIUM HYDROX 2400MG/30ML ORAL SUSPENSION 30 ML CUP PO PRN (13:03)
[2019-12-09] MEDS ORDERED: IBUPROFEN 400 MG TABLET (FP) PO PRN (13:03)
[2019-12-09] MEDS ORDERED: BISMUTH SUBSALICYLATE 524 MG/30 ML UD PO PRN (13:03)
[2019-12-09] MEDS ORDERED: ONDANSETRON *ODT* 4 MG TABLET SL PRN (13:03)
[2019-12-09] MEDS ORDERED: LORazepam 1 MG TABLET PO PRN (13:03)
[2019-12-09] MEDS ORDERED: MAG HYDROX/AL HYDROX/SIMETH 30 ML UNIT-DOSE CUP PO PRN (13:03)
[2019-12-09] MEDS ORDERED: MENTHOL/PHENOL 1 EACH UD MM PRN (13:03)
[2019-12-09] MEDS ORDERED: METHOCARBAMOL 500 MG TABLET PO PRN (13:03)
--- OUTSIDE RECORDS SUMMARY | 2019-12-09 13:14 | XMS ---
:1960 Author Organization [facility] Support Name Relationship Address Phone [facility] Unavailable [address] [place] [address] UE Unavailable Unavailable Unavailable PETER DARLING [address] [place] [address] PETER DARLING Other [address] [place] [address] Re-disclosure Warning The records that you are [...] is protected by Article 27-F of the [facility] Public Health law. If you continue you may haveaccess to information: Regarding HIV / AIDS; Provided by facilities licensed or operated by the [facility] Office of Mental Health; or Provided by the [facility] Office for People With Developmental Disabilities. If such information is present, then the following [facility] mandated warning applies: This information has been [...] law may result in a fine or fci sentence or both. A general authorization for the release of medical or other information is NOT sufficient authorization for further disclosure. Insurance Providers Payer name Policy type Policy ID Covered Covered libertarian's Policy P michael / Coverage libertarian ID relationship to [employer] Inf ormation type aguayo [employer] BS [id number] SP [id number] HEALTHPLUS VALUE [id number] SP [id number] OPTIONS-BMP/GH I GHI PPO [id number] SP [id number] VALUE [id number] SP [id number] OPTIONS-BMP/GH I Results ID Date Data Source [id number] 11/02/2019 03:30:00 PM EDT [facility] Name Value Range Interpretation Description Data Sup porting Code Source(s) Document(s ) SARS [facility] coronavirus 2 RNA This lab was ordered by [facility] Bill Inter and reported by [facility]. ID Date Data Source [id number] 09/30/2019 12:30:00 PM EDT [facility] Name Value Range Interpretation Description Data Sup porting Code Source(s) Document(s ) SARS [facility] coronavirus 2 RNA This lab was ordered by [facility] Bill Inter and reported by [facility]. ID Date Data Source [id number] 09/15/2019 05:00:00 AM EDT [facility] Name Value Range Interpretation Code Description Data Rakel rce(s) Supporting Document(s ) SARS-CoV-2 [facility] RNA Resp Ql RENNY+probe This lab was ordered by Stephan and toy erazo by [facility]. ID Date Data Source [id number] 09/05/2019 11:33:00 PM EDT [facility] Name Value Range Interpretation Code Description Data Rakel rce(s) Supporting Document(s ) SARS-CoV-2 [facility] RNA Resp Ql RENNY+probe This lab was ordered by Alayna erazo by [facility]. ID Date Data Source [id number] 06/25/2019 11:19:00 AM EDT [facility] Name Value Range Interpretation Code Description Data Rakel rce(s) Supporting Document(s ) COV2 [facility] This lab was ordered by [facility] 146 and reported by [facility]. Procedure
[2019-12-09] MEDS: HYDROCHLOROTHIAZIDE 25 MG TABLET (FP) PO SCH (14:04)
[2019-12-09] MEDS: amLODIPine BESYLATE 10 MG TABLET (FP) PO SCH (14:04)
[2019-12-09] MEDS: hydrOXYzine PAMOATE 25 MG CAPSULE (FP) PO SCH ×3 (14:05→22:09)
[2019-12-09] MEDS: LORazepam 2 MG TABLET PO SCH ×2 (17:38→22:09)
[2019-12-09] MEDS ORDERED: MELATONIN 5 MG TABLETS PO SCH (22:00)
[2019-12-09] MEDS: THIAMINE HCL 100 MG TABLET (FP) PO SCH (22:11)
[2019-12-10] MEDS ORDERED: LOPERAMIDE HCL 2 MG CAPSULE PO ONE ×2 (02:33→10:15)
[2019-12-10] MEDS: LORazepam 2 MG TABLET PO SCH ×4 (06:17→22:11)
[2019-12-10] MEDS: hydrOXYzine PAMOATE 25 MG CAPSULE (FP) PO SCH ×5 (06:17→22:11)
--- NOTE | 2019-12-10 09:35 | PN ---
[facility] CIWA - CIWA Score Nausea/Vomitin (reports multiple episodes of vomiting last night (nb, nb)) Muscle Tremors: 3 Anxiety: 4-Mod. Anxious/Guarded Agitation: 3 Paroxysmal Sweats: 2 Orientation: 0-Oriented Tacttile Disturbances: 0-None Auditory Disturbances: 0-None Visual Disturbances: 0-None Headache: 0-None Present CIWA-Ar Total Score: [address] [facility] Progress Note (SOAP) Subjective: Pt seen at bedside this morning. Pt complaining of alcohol withdrawal symptoms (i.e. nausea, vomiting, worsening sweat, anxiety, tremors, and restlessness). Pt also complaining of dry eyes, abdominal discomfort, and interrupted sleep. Objective: Last Vital Signs Temp Pulse Resp BP Pulse Ox 97.1 F L 93 H 18 132/84 100 12/09/19 21:38 12/09/19 21:38 12/09/19 21:38 12/09/19 21:38 12/09/19 21:38 Gen - AOx3; well-nourished; anxious appearing CV - RRR, normal s1/s2 Pulm - CTAB Abd - soft, non-distended above baseline, non-tender abdomen; generalized mild discomfort with palpation of abdomen Ext - moving all extremities equally/spontaneously; mild tremor; moist palms Laboratory 12/10/19 12/10/19 12/10/19 06:20 06:20 06:20 WBC 4.1 K/mm3 K/mm3 (4.0-10.0) RBC 3.51 M/mm3 L M/mm3 (3.60-5.2) Hgb 10.2 GM/dL L GM/dL (10.7-15.3) Hct 31.3 % L % (32.4-45.2) MCV 89.2 fl fl (80-96) MCH 29.2 pg pg (25.7-33.7) MCHC 32.7 g/dl g/dl (32.0-36.0) RDW 16.0 % H % (11.6-15.6) Plt Count 192 K/MM3 D K/MM3 (134-434) MPV 8.5 fl fl (7.5-11.1) Sodium 139 mmol/L mmol/L (136-145) Potassium 3.6 mmol/L mmol/L (3.5-5.1) Chloride 101 mmol/L mmol/L (98-107) Carbon Dioxide 30 mmol/L mmol/L (21-32) Anion Gap 8 MMOL/L MMOL/L (8-16) BUN 8.7 mg/dL mg/dL (7-18) Creatinine 0.6 mg/dL mg/dL (0.55-1.3) Est GFR (CKD-EPI)AfAm 114.82 Est GFR (CKD-EPI)NonAf 99.07 Random Glucose 83 mg/dL mg/dL (74-106) Calcium 8.1 mg/dL L mg/dL (8.5-10.1) Total Bilirubin 0.5 mg/dL mg/dL (0.2-1) AST 82 U/L H U/L (15-37) ALT 44 U/L U/L (13-61) Alkaline Phosphatase 100 U/L U/L (45-117) Total Protein 7.4 g/dl g/dl (6.4-8.2) Albumin 3.6 g/dl g/dl (3.4-5.0) Syphilis Serology Non-reactive (NONREACTIVE) 12/10/19 12:54 12/10/19 12:58 Assessment: Pt with continued alcohol withdrawal symptoms. Also with dry eyes, abdominal discomfort, and interrupted sleep. 12/10/19 12:55 Plan: Continue with ativan detox protocol. Artificial tears for dry eyes. Melatonin increased to 10 mg for insomnia. One time dose of imodium given; provided relief for pt previously.
[2019-12-10 10:01] LABS: ALBUMIN 3.6 g/dl (3.4-5.0); BILIRUBIN,TOTAL 0.5 mg/dL (0.2-1); BLOOD UREA NITROGEN 8.7 mg/dL (7-18); CALCIUM 8.1 mg/dL (8.5-10.1); CREATININE 0.6 mg/dL (0.55-1.3); POTASSIUM 3.6 mmol/L (3.5-5.1); TOT PROT 7.4 g/dl (6.4-8.2)
[2019-12-10 10:03] LABS: HEMATOCRIT 31.3 % (32.4-45.2); HEMOGLOBIN 10.2 GM/dL (10.7-15.3); MCH 29.2 pg (25.7-33.7); MCHC 32.7 g/dl (32.0-36.0); MEAN CELL VOLUME 89.2 fl (80-96); MEAN PLT VOLUME 8.5 fl (7.5-11.1); PLATELET COUNT 192 K/MM3 (134-434); RBC 3.51 M/mm3 (3.60-5.2); WHITE BLOOD COUNT 4.1 K/mm3 (4.0-10.0)
[2019-12-10] MEDS: PRENATAL VITAMINS W/ FOLIC ACID TABLET (FP) PO SCH (10:42)
[2019-12-10] MEDS: amLODIPine BESYLATE 10 MG TABLET (FP) PO SCH (10:42)
[2019-12-10] MEDS: NICOTINE 7 MG/24 HOURS TOPICAL PATCH TD SCH (10:42)
[2019-12-10] MEDS: HYDROCHLOROTHIAZIDE 25 MG TABLET (FP) PO SCH (10:42)
[2019-12-10] MEDS: ARTIFICIAL TEARS (POLYVINYL ALCOHOL) OPTH DROPS OU PRN (14:49)
[2019-12-10] MEDS: THIAMINE HCL 100 MG TABLET (FP) PO SCH (22:11)
[2019-12-10] MEDS: MELATONIN 5 MG TABLETS PO SCH (22:11)
[2019-12-11] MEDS: ARTIFICIAL TEARS (POLYVINYL ALCOHOL) OPTH DROPS OU PRN (02:28)
[2019-12-11] MEDS: LORazepam 1 MG TABLET PO SCH ×4 (05:45→22:22)
[2019-12-11] MEDS: hydrOXYzine PAMOATE 25 MG CAPSULE (FP) PO SCH ×5 (05:45→22:23)
[2019-12-11] MEDS: amLODIPine BESYLATE 10 MG TABLET (FP) PO SCH (10:20)
[2019-12-11] MEDS: NICOTINE 7 MG/24 HOURS TOPICAL PATCH TD SCH (10:20)
[2019-12-11] MEDS: PRENATAL VITAMINS W/ FOLIC ACID TABLET (FP) PO SCH (10:20)
[2019-12-11] MEDS: HYDROCHLOROTHIAZIDE 25 MG TABLET (FP) PO SCH (10:20)
--- NOTE | 2019-12-11 13:19 | PN ---
S CIWA - CIWA Score Nausea/Vomitin-No Nausea/No Vomiting Muscle Tremors: None Anxiety: 2 Agitation: 0-Normal Activity Paroxysmal Sweats: 2 Orientation: 0-Oriented Tacttile Disturbances: 0-None Auditory Disturbances: 0-None Visual Disturbances: 0-None Headache: 2-Mild CIWA-Ar Total Score: 6 [facility] Progress Note (SOAP) Subjective: c/o headache, sweats, and anxiety. Objective: 12/11/19 13:18 Vital Signs 12/11/19 12/11/19 06:38 09:12 Temperature 97.7 F 98.8 F Pulse Rate 90 86 Respiratory 18 20 Rate Blood Pressure 131/89 119/86 O2 Sat by Pulse 99 95 Oximetry (%) Laboratory Last Values WBC 4.1 K/mm3 (4.0-10.0) 12/10/19 06:20 RBC 3.51 M/mm3 (3.60-5.2) L 12/10/19 06:20 Hgb 10.2 GM/dL (10.7-15.3) L 12/10/19 06:20 Hct 31.3 % (32.4-45.2) L 12/10/19 06:20 MCV 89.2 fl (80-96) 12/10/19 06:20 MCH 29.2 pg (25.7-33.7) 12/10/19 06:20 MCHC 32.7 g/dl (32.0-36.0) 12/10/19 06:20 RDW 16.0 % (11.6-15.6) H 12/10/19 06:20 Plt Count 192 K/MM3 (134-434) D 12/10/19 06:20 MPV 8.5 fl (7.5-11.1) 12/10/19 06:20 Sodium 139 mmol/L (136-145) 12/10/19 06:20 Potassium 3.6 mmol/L (3.5-5.1) 12/10/19 06:20 Chloride 101 mmol/L (98-107) 12/10/19 06:20 Carbon Dioxide 30 mmol/L (21-32) 12/10/19 06:20 Anion Gap 8 MMOL/L (8-16) 12/10/19 06:20 BUN 8.7 mg/dL (7-18) 12/10/19 06:20 Creatinine 0.6 mg/dL (0.55-1.3) 12/10/19 06:20 Est GFR (CKD-EPI)AfAm 114.82 12/10/19 06:20 Est GFR (CKD-EPI)NonAf 99.07 12/10/19 06:20 Random Glucose 83 mg/dL (74-106) 12/10/19 06:20 Calcium 8.1 mg/dL (8.5-10.1) L 12/10/19 06:20 Total Bilirubin 0.5 mg/dL (0.2-1) 12/10/19 06:20 AST 82 U/L (15-37) H 12/10/19 06:20 ALT 44 U/L (13-61) 12/10/19 06:20 Alkaline Phosphatase 100 U/L (45-117) 12/10/19 06:20 Total Protein 7.4 g/dl (6.4-8.2) 12/10/19 06:20 Albumin 3.6 g/dl (3.4-5.0) 12/10/19 06:20 Syphilis Serology Non-reactive (NONREACTIVE) 12/10/19 06:20 COVID-19 (RENNY) Not detected (Not Detected) 12/09/19 13:15 Labs noted. Assessment: 12/11/19 13:18 AOX3, in no acute respiratory distress. Full ROM, ambulating in the unit. Withdrawal symptoms. Plan: continue detox.
[2019-12-11] MEDS: MELATONIN 5 MG TABLETS PO SCH (22:22)
[2019-12-11] MEDS: THIAMINE HCL 100 MG TABLET (FP) PO SCH (22:22)
[2019-12-12] MEDS ORDERED: LORazepam 0.5 MG TABLET PO PRN
[2019-12-12] MEDS: hydrOXYzine PAMOATE 25 MG CAPSULE (FP) PO SCH ×5 (05:51→22:06)
[2019-12-12] MEDS: LORazepam 0.5 MG TABLET PO SCH ×4 (05:51→22:05)
[2019-12-12] MEDS: ARTIFICIAL TEARS (POLYVINYL ALCOHOL) OPTH DROPS OU PRN (07:35)
[2019-12-12] MEDS: PRENATAL VITAMINS W/ FOLIC ACID TABLET (FP) PO SCH (10:14)
[2019-12-12] MEDS: NICOTINE 7 MG/24 HOURS TOPICAL PATCH TD SCH (10:14)
[2019-12-12] MEDS: amLODIPine BESYLATE 10 MG TABLET (FP) PO SCH (10:14)
[2019-12-12] MEDS: HYDROCHLOROTHIAZIDE 25 MG TABLET (FP) PO SCH (10:16)
--- NOTE | 2019-12-12 13:28 | PN ---
S CIWA - CIWA Score Nausea/Vomitin-No Nausea/No Vomiting Muscle Tremors: 1-None Visible, but [place] Anxiety: 1-Mildly Anxious Agitation: 0-Normal Activity Paroxysmal Sweats: No Perspiration Orientation: 0-Oriented Tacttile Disturbances: 0-None Auditory Disturbances: 0-None Visual Disturbances: 1-Very Mild Sensitivity Headache: 0-None Present CIWA-Ar Total Score: 3 [facility] Progress Note (SOAP) Subjective: 59 years old female was admitted on 12/09/19 for alcohol withdrawal sx management treating with ativan detox regiment feels better today less tremor mild anxiety discussing aftercare with staff ms nath prefers to go to addiction recovery [facility] for alcohol abuse treatment Objective: 12/12/19 13:25 Vital Signs - 24 hr 12/11/19 12/11/19 12/12/19 16:55 20:25 08:38 Temperature 97.3 F L 97.5 F L 97.4 F L Pulse Rate 77 75 88 Respiratory 16 18 16 Rate Blood Pressure 120/85 129/90 108/79 O2 Sat by Pulse 95 95 Oximetry (%) 12/12/19 12:52 Temperature 97.3 F L Pulse Rate 96 H Respiratory 18 Rate Blood Pressure 133/87 O2 Sat by Pulse 97 Oximetry (%) Laboratory Tests 12/09/19 12/10/19 12/10/19 13:15 06:20 06:20 WBC 4.1 RBC 3.51 L Hgb 10.2 L Hct 31.3 L MCV 89.2 MCH 29.2 MCHC 32.7 RDW 16.0 H Plt Count 192 D MPV 8.5 Sodium Potassium Chloride Carbon Dioxide Anion Gap BUN Creatinine Est GFR (CKD-EPI)AfAm Est GFR (CKD-EPI)NonAf Random Glucose Calcium Total Bilirubin AST ALT Alkaline Phosphatase Total Protein Albumin Syphilis Serology Non-reactive COVID-19 (RENNY) Not detected 12/10/19 06:20 WBC RBC Hgb Hct MCV MCH MCHC RDW Plt Count MPV Sodium 139 Potassium 3.6 Chloride 101 Carbon Dioxide 30 Anion Gap 8 BUN 8.7 Creatinine 0.6 Est GFR (CKD-EPI)AfAm 114.82 Est GFR (CKD-EPI)NonAf 99.07 Random Glucose 83 Calcium 8.1 L Total Bilirubin 0.5 AST 82 H ALT 44 Alkaline Phosphatase 100 Total Protein 7.4 Albumin 3.6 Syphilis Serology COVID-19 (RENNY) low hgb begin iron supplement Assessment: 12/12/19 13:27 alcohol withdrawal Plan: ativan regiment
[2019-12-12] MEDS ORDERED: FERROUS SO4 325 MG TABLET (FP) PO SCH (13:30)
[2019-12-12] MEDS ORDERED: MASKS NR ONE (20:41)
[2019-12-12] MEDS: MELATONIN 5 MG TABLETS PO SCH (22:05)
[2019-12-12] MEDS: THIAMINE HCL 100 MG TABLET (FP) PO SCH (22:05)
[2019-12-13] MEDS ORDERED: LORazepam 0.5 MG TABLET PO ONE (05:00)
[2019-12-13 06:26] VITALS: BP 132/80; PULSE 83; TEMP 97.3
[2019-12-13] MEDS: hydrOXYzine PAMOATE 25 MG CAPSULE (FP) PO SCH (06:43)
--- NOTE | 2019-12-13 11:30 | DS ---
[facility] Detox Discharge Summary Admission Date: 12/09/19 Discharge Date: 12/13/19 - History Present History: Alcohol Dependence Additional Comments: 59 years old female was admitted on 12/09/19 for alcohol withdrawal sx management treated with ativan detox regiment ms nath has completed the ativan regiment and is tolerated well General Appearance: Yes: Nourished, Appropriately Dressed, good hygiene HEENTM: Yes: EOMI, Hearing grossly Normal, Normocephalic, Normal Voice Respiratory: Yes: Lungs Clear, No Respiratory Distress, No Accessory Muscle Use Neck: Yes: Within Normal Limits, Supple Breast: Yes: Breast Exam Deferred Cardiology: Yes: Regular Rhythm, Regular Rate Abdominal: Yes: Normal Bowel Sounds, Soft, Protuberent Back: Yes: Normal Inspection Musculoskeletal: Yes: full range of Motion Extremities: Yes: Normal Inspection, Non-Tender Neurological: Yes: Alert, Normal Response Integumentary: Yes: Normal Color, Dry, Warm Pertinent Past History: time for discharge 35 minutes - Physical Exam Results Vital Signs: Vital Signs Temperature 97.3 F L 12/13/19 06:25 Pulse Rate 83 12/13/19 06:25 Respiratory Rate 18 12/13/19 06:25 Blood Pressure 132/80 12/13/19 06:25 O2 Sat by Pulse Oximetry (%) 97 12/13/19 06:25 Pertinent Admission Physical Exam Findings: alcohol withdrawal Vital Signs - 24 hr 12/12/19 12/12/19 12/12/19 12:52 17:08 20:24 Temperature 97.3 F L 97.1 F L 98.0 F Pulse Rate 96 H 94 H 88 Respiratory 18 18 18 Rate Blood Pressure 133/87 138/90 131/92 O2 Sat by Pulse 97 97 Oximetry (%) 12/13/19 06:25 Temperature 97.3 F L Pulse Rate 83 Respiratory 18 Rate Blood Pressure 132/80 O2 Sat by Pulse 97 Oximetry (%) Laboratory Tests 12/09/19 12/10/19 12/10/19 13:15 06:20 06:20 WBC 4.1 RBC 3.51 L Hgb 10.2 L Hct 31.3 L MCV 89.2 MCH 29.2 MCHC 32.7 RDW 16.0 H Plt Count 192 D MPV 8.5 Sodium Potassium Chloride Carbon Dioxide Anion Gap BUN Creatinine Est GFR (CKD-EPI)AfAm Est GFR (CKD-EPI)NonAf Random Glucose Calcium Total Bilirubin AST ALT Alkaline Phosphatase Total Protein Albumin Syphilis Serology Non-reactive COVID-19 (RENNY) Not detected 12/10/19 06:20 WBC RBC Hgb Hct MCV MCH MCHC RDW Plt Count MPV Sodium 139 Potassium 3.6 Chloride 101 Carbon Dioxide 30 Anion Gap 8 BUN 8.7 Creatinine 0.6 Est GFR (CKD-EPI)AfAm 114.82 Est GFR (CKD-EPI)NonAf 99.07 Random Glucose 83 Calcium 8.1 L Total Bilirubin 0.5 AST 82 H ALT 44 Alkaline Phosphatase 100 Total Protein 7.4 Albumin 3.6 Syphilis Serology COVID-19 (RENNY) iron deficiency alcohol induced ast elevation - Treatment Hospital Course: Detox Protocol Followed, Detoxed Safely, Responded well, Discharged Condition Good, Rehab Referral Accepted Patient has Accepted a Rehab Referral to: [facility] for vivitrol IM - Medication Discharge Medications: Ambulatory Orders Amlodipine Besylate [Norvasc -] 10 mg PO DAILY #30 tab 04/06/17 Hydrochlorothiazide [Hctz -] 25 mg PO DAILY #30 tablet 04/06/17 - Diagnosis (1) Substance induced mood disorder Status: Suspected (2) Alcohol dependence with uncomplicated withdrawal Status: Acute (3) Iron deficiency anemia secondary to inadequate dietary iron intake Status: Chronic (4) Hypertension Status: Chronic Qualifiers: Hypertension type: essential hypertension Qualified Code(s): I10 - Essential (primary) hypertension (5) Obesity Status: Chronic Qualifiers: Obesity type: due to excess calories Obesity classification: adult class 3 (BMI >= 40) Serious obesity comorbidity presence: with serious comorbidity Body mass index: BMI 40.0-44.9 Qualified Code(s): E66.01 - Morbid (severe) obesity due to excess calories; Z68.41 - Body mass index [BMI]40.0-44.9, adult - AMA Did Patient Leave Against Medical Advice: No CIWA Score - CIWA Score Nausea/Vomitin-No Nausea/No Vomiting Muscle Tremors: 1-None Visible, but [place] Anxiety: 0-No Anxiety, at Ease Agitation: 0-Normal Activity Paroxysmal Sweats: No Perspiration Orientation: 0-Oriented Tacttile Disturbances: 0-None Auditory Disturbances: 0-None Visual Disturbances: 0-None Headache: 0-None Present CIWA-Ar Total Score: 1
== END 2019-12-13 09:06 | disposition home or self-care (01) | DRG 775 ==
LOC: YASAS 11:04 → Y3N 13:10
PROVIDERS: ADMIT Allergy & Immunology; ATTEND Allergy & Immunology
PROC: HZ2ZZZZ Detoxification Services for Substance Abuse Treatment (ICD-10-PCS; principal; 2019-12-09)
DX: F10.230 Alcohol dependence with withdrawal, uncomplicated (principal); F19.24 Other psychoactive substance dependence with psychoactive substance-induced mood disorder; D50.8 Other iron deficiency anemias; G47.00 Insomnia, unspecified; I10 Essential (primary) hypertension; J45.998 Other asthma; R00.2 Palpitations; H04.123 Dry eye syndrome of bilateral lacrimal glands; E66.01 Morbid (severe) obesity due to excess calories; Z68.41 Body mass index [BMI] 40.0-44.9, adult; Z98.890 Other specified postprocedural states; Z88.6 Allergy status to analgesic agent; Z91.040 Latex allergy status
CPT/HCPCS: 36415; 80053; 85027; 86780; C9803; Q0162; U0003